=== PATIENT | male | born 1960 | race African-American/Black ===

== ENCOUNTER 2017-06-09 14:54 | Observation (INO) | payer MEDICARE, MEDICAID ==
[2017-06-09 15:42] LABS: #Basophils 0.1 thou/uL (0.0-0.2); #Eosinphils 0.1 thou/uL (0.0-0.7); #Lymphocytes 0.9 thou/uL (1.20-3.40); #Monocytes 0.3 thou/uL (0.11-0.59); #Neutrophils 2.7 thou/uL (1.40-6.50); %Basophils 2.7 % (0.0-1.0); %Eosinophils 2.5 % (0.0-10.0); %Lymphocytes 22.2 % (21.0-51.0); %Monocytes 8.2 % (0.0-10.0); %Neutrophils 64.4 % (42.0-75.0); Hemoglobin 6.7 g/dL (14.0-18.0); Mean Corpuscular HGB CONC 32.5 g/dL (32.0-36.0); Mean Corpuscular Hemoglobin 32.9 pg (27.0-31.0); Mean Platelet Volume 7.3 fL (7.4-10.4); Platelet Count 228 thou/uL (130-400); RBC Distribution Width 16.2 % (11.5-14.5); Red Blood Cell (RBC) Count 2.04 mill/uL (4.70-6.10); White Blood Cell (WBC) Count 4.1 thou/uL (4.8-10.8)
[2017-06-09 16:02] LABS: ALT (SGPT) 24 U/L (8-55); AST (SGOT) 16 U/L (5-34); Albumin 3.7 g/dL (3.5-5.0); Alkaline Phosphatase 91 U/L (40-150); Anion Gap 12 mmol/L (10-20); BUN (Urea Nitrogen) 44 mg/dL (8.4-25.7); Bilirubin, Total 0.4 mg/dL (0.2-1.2); CK (CPK) 56 U/L (30-200); Calc. Creatinine Clearance 0 mL/min (70-130); Calcium 8.6 mg/dL (7.8-10.44); Carbon Dioxide 31 mmol/L (22-29); Chloride 101 mmol/L (98-107); Estimated GFR-MDRD 8; Globulin 2.8 g/dL (2.4-3.5); Glucose 142 mg/dL (70-105); Potassium 4.2 mmol/L (3.5-5.1); Protein, Total 6.5 g/dL (6.0-8.3); Sodium 140 mmol/L (136-145)
[2017-06-09 16:10] LABS: CKMB 1.2 ng/mL (0-6.6); Troponin I 0.029 ng/mL (< 0.028)
--- NOTE | 2017-06-09 17:43 | PDOC.EVN ---
Event Note - Event Note Event Note: [id number] 1. Anemia 2. ESRD 3. htn 4. sECONDARY HYPERPARATHYROIDISM PLAN: see orders
[2017-06-09] MEDS ORDERED: Acetaminophen 325 MG TAB PO PRN (17:52)
[2017-06-09] MEDS ORDERED: Ondansetron HCl/PF 4 MG/2 ML Vial IVP PRN (17:52)
[2017-06-09] MEDS ORDERED: FLU VACC QS2017-18 36 mo. & older 0.5 ML SYRINGE IM ONE (21:00)
[2017-06-09] MEDS: cloNIDine 0.2 MG TAB PO SCH (21:08)
[2017-06-09] MEDS: Heparin 5,000 UNITS/ML VIAL SC SCH (21:08)
[2017-06-09] MEDS: NIFEdipine XL 60 MG TAB PO SCH (21:08)
[2017-06-09 22:13] VITALS: BMI 21.1
--- NOTE | 2017-06-09 23:13 | HP ---
DATE OF ADMISSION: 06/09/2017 CHIEF COMPLAINT: Anemia. HISTORY OF PRESENT ILLNESS: The patient is 56-year-old male with past medical history of end-stage r enal disease, hypertension, anemia of chronic disease, secondary hyperparathyroidism, now came to the ER because of abnormal labs. The patient went to the dialysis unit and the patient had routine hemo globin check and the patient was found to be anemic, so patient was transferred here. The patient de nies any bleeding per rectum. Denies any nausea. Denies any vomiting. Denies chest pain, denies dy spnea. Denies any cough, denies sputum production. Denies abdominal pain. The patient said he has history of anemia and had blood transfusions in the past. PAST MEDICAL HISTORY: As per HPI. PAST SURGICAL HISTORY: AV fistula. SOCIAL HISTORY: Positive for smoking, denies alcohol, denies any drugs. MEDICATIONS: Reviewed. FAMILY HISTORY: Denies any colon cancer. REVIEW OF SYSTEMS: Constitutional: Denies any fever, denies any chills. Eyes: Denies any vision p roblems. Ears: Denies any hearing loss. Neck: Denies any neck pain. Cardiovascular system: John es any chest pain, denies palpitations. Respiratory system: Denies any cough, denies sputum product ion. Gastrointestinal: Denies nausea, denies vomiting. Musculoskeletal: Denies any joint deformit ies. Integumentary: Denies any rash. All other review of systems are reviewed and are negative. PHYSICAL EXAMINATION: CONSTITUTIONAL/VITAL SIGNS: At the time of H&P performed, blood pressure is 130/70, afebrile, respir ation rate 18. GENERAL APPEARANCE: The patient appears comfortable. HEENT: Pupils are equal, round, and reactive to light. Anterior nares patent. Nose normal. Ears no rmal. Teeth intact. Tongue is moist. NECK: Supple, no JVD. CARDIOVASCULAR SYSTEM: S1, S2 present. Regular rate and rhythm. No murmurs, no rubs, no gallops. RESPIRATORY SYSTEM: No wheezing, no rhonchi. Breath sounds bilaterally. GASTROINTESTINAL: Abdomen is soft, nontender, no guarding, no organomegaly, no masses felt. MUSCULOSKELETAL: Left upper extremity, positive for AV fistula. PSYCHIATRIC: Mood is appropriate at this time. INTEGUMENTARY: No obvious rashes seen. LABORATORY DATA: At the time of H&P performed, white count 4.1, hemoglobin 6.7, platelet count 228. BMP shows sodium 140, potassium 4.2, chloride 101, CO2 of 31, BUN of 44, creatinine 8.01. Troponin 0.029. BNP 2657. ASSESSMENT AND PLAN: The patient is 56 years old male. 1. Anemia of chronic disease. ED physician already spoke to the glassblower. Plan to transfuse 2 units of PRBCs. Plan to have dialysis also today. 2. End-stage renal disease. The patient gets dialysis Monday, Monday, and Monday. We will go ah ead and consult Dr. Byrne for dialysis. 3. Hypertension. Monitor blood pressure. Continue home blood pressure medications. 4. Secondary hyperparathyroidism. Monitor. Continue phos binders. Continue renal diet. The case was discussed in detail with the patient. The patient is FULL CODE. The patient does have some lucas zone troponins. We will go ahead and check serial cardiac enzymes and we will monitor the patient. The patient currently denies any pain.
[2017-06-10 04:46] LABS: #Basophils 0.1 thou/uL (0.0-0.2); #Eosinphils 0.1 thou/uL (0.0-0.7); #Lymphocytes 1.1 thou/uL (1.20-3.40); #Monocytes 0.4 thou/uL (0.11-0.59); #Neutrophils 2.9 thou/uL (1.40-6.50); %Eosinophils 2.5 % (0.0-10.0); %Lymphocytes 23.5 % (21.0-51.0); %Monocytes 9.1 % (0.0-10.0); %Neutrophils 62.9 % (42.0-75.0); Hemoglobin 9.2 g/dL (14.0-18.0); Mean Corpuscular HGB CONC 32.7 g/dL (32.0-36.0); Mean Corpuscular Hemoglobin 32.1 pg (27.0-31.0); Mean Corpuscular Volume 98.2 fl (80.0-94.0); Mean Platelet Volume 7.3 fL (7.4-10.4); Platelet Count 217 thou/uL (130-400); RBC Distribution Width 16.9 % (11.5-14.5); Red Blood Cell (RBC) Count 2.86 mill/uL (4.70-6.10); White Blood Cell (WBC) Count 4.5 thou/uL (4.8-10.8)
[2017-06-10 05:08] LABS: Anion Gap 12 mmol/L (10-20); BUN (Urea Nitrogen) 27 mg/dL (8.4-25.7); Calc. Creatinine Clearance 11 mL/min (70-130); Calcium 9.2 mg/dL (7.8-10.44); Carbon Dioxide 33 mmol/L (22-29); Chloride 101 mmol/L (98-107); Estimated GFR-MDRD 11; Glucose 117 mg/dL (70-105); Potassium 4.1 mmol/L (3.5-5.1); Sodium 142 mmol/L (136-145)
[2017-06-10] MEDS: NIFEdipine XL 60 MG TAB PO SCH (07:27)
[2017-06-10] MEDS: cloNIDine 0.2 MG TAB PO SCH (07:28)
[2017-06-10] MEDS: Heparin 5,000 UNITS/ML VIAL SC SCH (07:29)
[2017-06-10 07:46] VITALS: BP 159/76
[2017-06-10] MEDS ORDERED: Calcium Acetate 667 MG CAP PO SCH (08:00)
[2017-06-10] MEDS ORDERED: Carvedilol 25 MG TAB PO SCH (08:00)
[2017-06-10] MEDS ORDERED: Atorvastatin Calcium 20 MG TAB PO SCH ×2 (09:00→21:00)
[2017-06-10] MEDS ORDERED: Gabapentin 100 MG CAP PO SCH (09:00)
[2017-06-10] MEDS ORDERED: Cinacalcet HCl 30 MG TAB PO SCH (09:00)
[2017-06-10 09:01] VITALS: TEMP 98
--- NOTE | 2017-06-10 11:07 | CON ---
DATE OF CONSULTATION: 06/10/2017 NEPHROLOGY CONSULTATION REASON FOR CONSULTATION: Anemia and end-stage renal disease. HISTORY OF PRESENT ILLNESS: This is a 56-year-old gentleman, who presented to the hospital after not ed to have hemoglobin of 6.6. The patient has history of noncompliance and refuses to get Epogen on a regular basis, so develops major anemia and volume overload. The patient presented to the hospital , was emergently dialyzed and given one unit of blood. PAST MEDICAL HISTORY: Significant for hypertension, anemia, end-stage renal disease, history of seco ndary hyperparathyroidism, history of stroke, history of AV fistula, history of tunneled dialysis cat heter, history of respiratory failure and multiple intubations. SOCIAL HISTORY: No alcohol or drug use. FAMILY HISTORY: Negative for ESRD. ALLERGIES: Reviewed. HOME MEDICATIONS: List reviewed. REVIEW OF SYSTEMS: Fifteen point review of systems was performed and negative except as noted above. GENERAL: Weakness- HEAD: Headache- NECK: No swelling or lumps. NOSE: No epistaxis or discharge. EYES: No diplopia or pain. RESPIRATORY: Dyspnea- CARDIOVASCULAR: Chest pain- GASTROINTESTINAL: Nausea- /CENTRAL PROCESSING TECH: Hematuria- MUSCULOSKELETAL: No joint pain. NEUROPSYCHIATIC SYSTEMS: No suicidal ideation. No ideation. SKIN: Denies any rash or ulcer. CONSTITUTIONAL: No fever or chills. PHYSICAL EXAMINATION: GENERAL: The patient is awake, alert, in no acute distress. VITAL SIGNS: Afebrile, pulse 70, breathing at 16, blood pressure 130/70. GENERAL APPEARANCE AND MENTAL STATUS: Fair. HEAD/NECK: Normocephalic. Atraumatic. EYES: EOMI. No deformity. EARS: Clear. No ulcers. NOSE: Intact. No lesions. MOUTH: Clear. No discharge. THROAT: Clear. No exudate. LUNGS: Clear. No crackles. CARDIAC: S1, S2. No rub. ABDOMEN: Benign. BS+. GENITALIA/RECTUM: Arechiga absent. BACK/EXTREMITIES: Edema 0+ Ulcer- NEUROLOGICAL: Alert and motor intact. SKIN: Rash- Bruise- LYMPHATICS: Edema- Ulcer- LABORATORY DATA: Show hemoglobin of 9.2. ASSESSMENT AND PLAN: 1. Stage 6 chronic kidney disease, stable. No indication for dialysis today. 2. Anemia, stable. 3. Hypertension, stable. 4. Medications based on glomerular filtration rate are appropriate. The patient can be discharged.
--- NOTE | 2017-06-10 16:22 | DIS ---
DATE OF ADMISSION: 06/09/2017 DATE OF DISCHARGE: 06/10/2017 PRIMARY CARE PHYSICIAN: Eris Chowdary M.D. DISCHARGE DIAGNOSES: 1. Acute worsening of chronic anemia of kidney disease, status post blood transfusion. 2. End-stage renal disease. 3. Hypertension. 4. Secondary hyperparathyroidism. DISCHARGE MEDICATIONS: Remain the same as admission medication. Please see admission history and ph ysical dictated by Dr. Ibanez yesterday. INHOUSE CONSULTATION: Nephrology, Dr. Byrne. PROCEDURES DONE IN THE HOSPITAL: Hemodialysis. HISTORY OF PRESENTING ILLNESS: Mr. Chris is a 56-year-old male with known history of end-stage renal disease on chronic hemodialysis and anemia of chronic kidney disease, who was sent in from the dialy sis for complaints of abnormal labs. He was found to be significantly anemic while at the dialysis u nit with a hemoglobin of 6.7. He was otherwise asymptomatic. He was admitted under observation stat us for blood transfusion. Incidental finding was a BNP of 2657 and troponin of 0.029 without any ove rt symptoms of fluid overload. Please see admission history and physical for further details. HOSPITAL COURSE: The patient underwent dialysis without any incidences. He got transfused with 2 un its of packed RBCs and tolerated the procedure very well. His hemoglobin has improved to 9.2 this mo rning and he remains hemodynamically stable and asymptomatic. He is desirous to go home and is being discharged. He was seen and examined prior to discharge. PHYSICAL EXAMINATION: VITAL SIGNS: Temperature 98, heart rate 56, respirations 16, blood pressure 159/76, he is saturating 98% on room air. GENERAL: No acute distress, awake, alert, oriented x3. CHEST: Clear to auscultation without any wheezing, rales or rhonchi. Rate and rhythm is regular. EXTREMITIES: Free of any cyanosis, clubbing, or edema. He will follow up with his primary care physician and primary monitor worker as previously to continue maintenance hemodialysis. All questions were answered. Discharge plan was discussed with the patien t who reports that one of his friends will come and pick him up.
== END 2017-06-10 11:26 | disposition home or self-care (01) ==
LOC: ERS 14:54 → 2SW 16:38
PROVIDERS: ADMIT Internal Medicine; ATTEND Internal Medicine
DX: I12.0 Hypertensive chronic kidney disease with stage 5 chronic kidney disease or end stage renal disease (principal); N18.6 End stage renal disease; D63.1 Anemia in chronic kidney disease; N25.81 Secondary hyperparathyroidism of renal origin; F17.200 Nicotine dependence, unspecified, uncomplicated; Z91.14 Patient's other noncompliance with medication regimen; Z99.2 Dependence on renal dialysis; Z79.2 Long term (current) use of antibiotics; Z79.899 Other long term (current) drug therapy; Z98.890 Other specified postprocedural states; Z86.73 Personal history of transient ischemic attack (TIA), and cerebral infarction without residual deficits
CPT/HCPCS: 36430; 80048; 80053; 82550; 82553; 83880; 84100; 84484; 85025 ×2; 86850; 86900; 86901; 86920; 99285; 99406; G0378; P9016; 36415; 90935; G0257; J1644

== ENCOUNTER 2017-11-03 11:09 | Emergency (ER) | payer MEDICARE, MEDICAID ==
--- NOTE | 2017-11-03 13:16 | RAD ---
CHEST 1 VIEW: Date: 11/03/17 HISTORY: Vomiting and nausea. COMPARISON: 08/11/16. FINDINGS: Stable stent projecting over right hemithorax. Persistent cardiomegaly. Pulmonary vessels and hilum a re normal. Patchy interstitial opacities. No pleural effusion or pneumothorax. Stable stent projectin g over left upper extremity. IMPRESSION: Patchy interstitial opacities which may be due to edema or infiltrate. Continued surveillance is claudio mmended. POS: REBECA
[2017-11-03 13:25] LABS: Hemoglobin 4.9 g/dL (14.0-18.0); Mean Corpuscular HGB CONC 32.4 g/dL (32.0-36.0); Mean Corpuscular Hemoglobin 33.2 pg (27.0-31.0); Mean Platelet Volume 8.7 fL (7.4-10.4); Platelet Count 147 thou/uL (130-400); RBC Distribution Width 18.7 % (11.5-14.5); Red Blood Cell (RBC) Count 1.47 mill/uL (4.70-6.10)
[2017-11-03 13:40] LABS: Anisocytosis SLIGHT = 6-15 cells (100X) (0-5/hpf); Burr Cells SLIGHT = 2-5 cells (100X) (0-1/hpf); Eosinophils 2 % (0-10); Lymphocytes 10 % (21-51); MDiff Complete? YES; Macrocytosis SLIGHT = 6-15 cells (100X) (0-5/hpf); Monocytes 4 % (0-10); Neutrophil 83 % (42-75); Ovalocytes SLIGHT = 2-5 cells (100X) (0-1/hpf); PLT Morphology Comment Appears Adequate; Polychromasia MODERATE = 3-4 cells (100X) (0-2/hpf); Reflex for Review?? YES; Spherocytes SLIGHT = 1-5 cells (100X) (None Seen); White Blood Cell (WBC) Count 7.9 thou/uL (4.8-10.8)
[2017-11-03 13:44] LABS: CKMB 3.2 ng/mL (0-6.6); Troponin I 0.035 ng/mL (< 0.028)
[2017-11-03 13:45] LABS: ALT (SGPT) 12 U/L (8-55); AST (SGOT) 8 U/L (5-34); Albumin 3.4 g/dL (3.5-5.0); Alkaline Phosphatase 95 U/L (40-150); Anion Gap 31 mmol/L (10-20); Bilirubin, Total 0.4 mg/dL (0.2-1.2); CK (CPK) 117 U/L (30-200); Calc. Creatinine Clearance 0 mL/min (70-130); Calcium 8.4 mg/dL (7.8-10.44); Carbon Dioxide 13 mmol/L (22-29); Chloride 105 mmol/L (98-107); Estimated GFR-MDRD 4; Globulin 2.2 g/dL (2.4-3.5); Glucose 77 mg/dL (70-105); Lipase 34 U/L (8-78); Protein, Total 5.6 g/dL (6.0-8.3); Sodium 141 mmol/L (136-145)
[2017-11-03] MEDS ORDERED: Pantoprazole 40 MG VIAL ONE (13:47)
[2017-11-03] MEDS ORDERED: Ondansetron HCl/PF 4 MG/2 ML Vial ONE (13:47)
[2017-11-03 13:49] LABS: Potassium 7.5 mmol/L (3.5-5.1)
[2017-11-03] MEDS ORDERED: Sodium Bicarb 50 MEQ/50 ML Abboject 8.4% SYRINGE ONE (13:58)
[2017-11-03] MEDS ORDERED: Dextrose 50% Abboject 50 ML SYRINGE ONE (13:58)
[2017-11-03] MEDS ORDERED: Calcium Chloride 1 GM/10 ML Abboject SYRINGE ONE (13:58)
[2017-11-03] MEDS ORDERED: Insulin Regular 300 UNITS/3 ML VIAL ONE (13:58)
[2017-11-03 14:00] LABS: BUN (Urea Nitrogen) 161 mg/dL (8.4-25.7)
[2017-11-03 14:02] LABS: INR-International Normal Ratio 1.3; PTT 32.2 SEC (22.9-36.1); Prothrombin Time 16.3 SEC (12.0-14.7)
[2017-11-03] MEDS ORDERED: Fentanyl 100 MCG/2 ML VIAL ONE (14:26)
[2017-11-03 17:26] LABS: Hemoglobin 5.5 g/dL (14.0-18.0)
[2017-11-03 18:10] LABS: HBSAg Index 0.25 S/CO (0-0.99); Hep B Surf Ag Non-Reactive S/CO (NonReactive)
--- NOTE | 2017-11-04 01:02 | CON ---
DATE OF CONSULTATION: 11/03/2017 NEPHROLOGY CONSULTATION CONSULTING PHYSICIAN: Dr. Gonzales and Dr. Gerard. REASON FOR CONSULT: Hyperkalemia, anemia, and . HISTORY OF PRESENT ILLNESS: A 56-year-old male with history of end-stage renal dise ase, hypertension, anemia, came to the hospital with weakness and was found to have hemoglobin of 4 w ith GI bleed and also potassium of 7. Patient was having emergent dialysis in the ER, before he gets transferred, he would not be able to have an intervention here, GI intervention. Fruitfully GI inte rvention per GI and plan is to transfer him to [place], but due to his hyperkalemia, Nephrology is con sulted to dialyze him in the ER emergently for before stabilizing for transfer. PAST MEDICAL HISTORY: Positive for end-stage renal disease, hypertension, anemia, noncompliance. PAST SURGICAL HISTORY: AV fistula placement, GI interventions. HOME MEDICATIONS: Reviewed. SOCIAL HISTORY: History of smoking in the past. No alcohol or illicit drug abuse. FAMILY HISTORY: Positive for colon cancer and kidney disease. His mom is also on dialysis. REVIEW OF SYSTEMS: The following complete review of systems was negative, unless otherwise mentioned in the HPI or below: Constitutional: Weight loss or gain, ability to conduct usual activities. Sk in: Rash, itching. Eyes: Double vision, pain. ENT/Mouth: Nose bleeding, neck stiffness, pain, te nderness. Cardiovascular: Palpitations, dyspnea on exertion, orthopnea. Respiratory: Shortness of breath, wheezing, cough, hemoptysis, fever, or night sweats. Gastrointestinal: Poor appetite, abdo trev pain, heartburn, nausea, vomiting, constipation, or diarrhea. Genitourinary: Urgency, frequen cy, dysuria, nocturia. Musculoskeletal: Pain, swelling. Neurologic/Psychiatric: Anxiety, depressi on. Allergy/Immunologic: Skin rash, bleeding tendency. PHYSICAL EXAMINATION: GENERAL: This is a well-built male in no apparent distress. VITAL SIGNS: Temperature 98.6, pulse 71, respiratory rate 18, blood pressure 130/70. HEENT: Atraumatic, normocephalic. Oral mucosa is moist. NECK: Supple, no masses. HEART: S1, S2 heard. Rate and rhythm regular. RESPIRATORY: Clear. GI: Abdomen is soft. MUSCULOSKELETAL: No tenderness. No edema. DERMATOLOGIC: No skin rash. NEUROLOGIC: Alert, awake. PSYCHIATRIC: Normal mood and affect. LABORATORY DATA AND X-RAY FINDINGS: Hemoglobin is 4.9. Potassium 7.5, BUN is 161, creatinine is ___ __. ASSESSMENT AND PLAN: 1. End-stage renal disease. We will have emergent dialysis. 2. Severe hyperkalemia, life-threatening. Plan is to have emergent dialysis. 3. Anemia. We will give 3 units of blood before transfer. 4. Edema, controlled. 5. Hypertension, stable. 6. Prognosis guarded. Plan is to have emergent dialysis to stabilize the patient before transfer to the tertiary care and higher level of care. Plan discussed with Dr. Gonzales and Dr. Gerard. Thank you for the consult. We will follow.
== END 2017-11-03 20:53 | disposition short-term general hospital (02) ==
LOC: ERS 11:09
DX: D63.1 Anemia in chronic kidney disease (principal); K92.2 Gastrointestinal hemorrhage, unspecified; E87.5 Hyperkalemia; I13.2 Hypertensive heart and chronic kidney disease with heart failure and with stage 5 chronic kidney disease, or end stage renal disease; I50.9 Heart failure, unspecified; E11.22 Type 2 diabetes mellitus with diabetic chronic kidney disease; N18.6 End stage renal disease; F17.210 Nicotine dependence, cigarettes, uncomplicated; Z79.891 Long term (current) use of opiate analgesic; Z79.82 Long term (current) use of aspirin; Z79.899 Other long term (current) drug therapy
CPT/HCPCS: 36430; 71045; 80053; 82274; 82550; 82553; 83690; 83880; 84484; 85014; 85018; 85025; 85610; 85730; 86850; 86900; 86901; 86920; 87340; 93005; P9016; 36415; 36556; 85060; 90935; 96361; 96374; 96375; C9113; G0257; J1815; J2405; J3010

== ENCOUNTER 2018-10-05 04:58 | Inpatient (IN) | payer MEDICARE, MEDICAID ==
[2018-10-05] MEDS ORDERED: cloNIDine 0.1 MG TAB ONE (05:30)
[2018-10-05] MEDS ORDERED: hydrALAZINE 20 MG/ML VIAL ONE (05:30)
[2018-10-05 05:45] LABS: #Basophils 0.1 thou/uL (0.0-0.2); #Eosinphils 0.1 thou/uL (0.0-0.7); #Lymphocytes 0.7 thou/uL (1.20-3.40); #Monocytes 0.5 thou/uL (0.11-0.59); #Neutrophils 7.5 thou/uL (1.40-6.50); %Basophils 1.2 % (0.0-1.0); %Eosinophils 1.6 % (0.0-10.0); %Lymphocytes 7.6 % (21.0-51.0); %Monocytes 5.8 % (0.0-10.0); %Neutrophils 83.8 % (42.0-75.0); Hemoglobin 6.5 g/dL (14.0-18.0); Mean Corpuscular Hemoglobin 31.5 pg (27.0-31.0); Mean Corpuscular Volume 95.6 fL (78.0-98.0); Platelet Count 270 thou/uL (130-400); RBC Distribution Width 16.2 % (11.5-14.5); Red Blood Cell (RBC) Count 2.06 mill/uL (4.70-6.10); White Blood Cell (WBC) Count 8.9 thou/uL (4.8-10.8)
[2018-10-05 05:51] LABS: INR-International Normal Ratio 1.1; PTT 38.3 SEC (22.9-36.1); Prothrombin Time 14.4 SEC (12.0-14.7)
[2018-10-05 06:09] LABS: ALT (SGPT) 7 U/L (8-55); AST (SGOT) 9 U/L (5-34); Albumin 3.8 g/dL (3.5-5.0); Alkaline Phosphatase 97 U/L (40-150); Anion Gap 24 mmol/L (10-20); BUN (Urea Nitrogen) 77 mg/dL (8.4-25.7); Bilirubin, Total 0.3 mg/dL (0.2-1.2); Calc. Creatinine Clearance 0 mL/min (70-130); Calcium 8.5 mg/dL (7.8-10.44); Carbon Dioxide 25 mmol/L (22-29); Chloride 97 mmol/L (98-107); Estimated GFR-MDRD 7; Glucose 85 mg/dL (70-105); Iron 53 ug/dL (65-175); Iron Binding Capacity, Total 275 mcg/dL (261-462); Potassium 4.4 mmol/L (3.5-5.1); Protein, Total 6.8 g/dL (6.0-8.3); Sodium 142 mmol/L (136-145)
[2018-10-05] MEDS ORDERED: Morphine 4 MG/ML VIAL ONE (06:12)
[2018-10-05 06:35] LABS: Reticulocyte Count 3.7 % (0.5-1.5)
[2018-10-05] MEDS ORDERED: Sodium Chloride 0.9% (PF) 10 ML VIAL FS PRN (06:47)
[2018-10-05 06:52] LABS: Troponin I 0.076 ng/mL (< 0.028)
[2018-10-05] MEDS ORDERED: Ondansetron ODT 4 MG TAB PO PRN (07:20)
[2018-10-05] MEDS ORDERED: Ondansetron PF 4 MG/2 ML Vial IVP PRN (07:20)
[2018-10-05] MEDS ORDERED: Calcium Carbonate 500 MG ChewTAB PO PRN (07:20)
[2018-10-05] MEDS ORDERED: Senokot S 8.6-50 MG TAB PO PRN (07:20)
--- NOTE | 2018-10-05 07:48 | RAD ---
XR Chest 1 View Portable HISTORY: Abdominal pain COMPARISON: 11/03/2017 FINDINGS: The heart size is prominent. The aorta is tortuous. Right-sided vascular stent is again seen. There i s mild prominence of the pulmonary vascularity. Mild patchy infiltrate is seen in the right lower lung. No pneumothoraces or large effusions are seen. There are postoperative changes in the lower cer vical spine. Vascular stent in the left axilla is again seen.
[2018-10-05 08:05] VITALS: BMI 26.4
--- NOTE | 2018-10-05 08:10 | HP ---
PRIMARY CARE PHYSICIAN: Dr. Chowdary. CHIEF COMPLAINT: Chest discomfort. HISTORY OF PRESENT ILLNESS: The patient is a 57-year-old male with an end-stage renal disease, on hemodialysis, and recurrent anemia, presented to [facility] with above complaint. The patient has a long history of anemia. He has had multiple workup. Earlier this month, he presented to [facility] and underwent EGD. His hemoglobin at that time was 4.9. He also received 1 unit of PRBC. EGD by Dr. Cruz showed non-specific gastritis. Last week, he presented to [facility] [place] [place] with anemia. Hemoglobin was 5.7. He received 2 units of PRBC. Small bowel enteroscopy showed non-erosive gastritis with thickened gastric folds as well as duodenitis. The patient presented to the emergency room today with chest pain that started around 11 a.m. yesterday. It was substernal, mild, radiating to his right shoulder. He also had nausea and vomiting along with diaphoresis. He denies any syncope or palpitations. No recent immobilization travel reported. He is compliant with hemodialysis. His hemoglobin today at [facility] was 6.1. He was transferred to this facility for hospital admission. PAST MEDICAL HISTORY: 1. Recurrent, symptomatic anemia, requiring multiple blood transfusions, probably causing chest discomfort. 2. Coronary artery disease. Echocardiogram last year showed ejection fraction of 55% to 60% with [id number] increased left ventricular thickness as well as diastolic dysfunction. 3. Chronic diastolic heart failure. 4. History of cerebrovascular accident. 5. Diabetes mellitus type 2. 6. End-stage renal disease, on hemodialysis. 7. Gastroesophageal reflux disease. 8. Hypertension with hypertensive urgency. 9. History of [id number] MT. 10. Peripheral vascular disease. PAST SURGICAL HISTORY: 1. Dialysis access. 2. Coronary stent placement. 3. Angiogram for peripheral vascular disease, details unavailable. CURRENT HOME MEDICATIONS: The patient is unable to recall all of his home medications. From review of his record, his medications include, 1. Gabapentin 100 mg three times a day. 2. Procardia XL 30 mg b.i.d. 3. Tylenol as needed. 4. Amitriptyline 25 mg daily. 5. Lipitor 40 mg daily. 6. PhosLo 667 mg daily. 7. Sensipar 60 mg daily. 8. Carvedilol b.i.d. dose unclear. ALLERGIES: THE PATIENT IS ALLERGIC TO HYDRALAZINE. SOCIAL HISTORY: The patient continues to smoke on the daily basis. Denies any alcohol or drug use. FAMILY HISTORY: Positive for kidney disease in the mother and malignancy in the father. REVIEW OF SYSTEMS: All other review of systems were reviewed and were found negative. PHYSICAL EXAMINATION: VITAL SIGNS: Temperature 97.8, respirations of 18, pulse rate of 85, blood pressure of 202/86 with O2 saturation 94% on room air. GENERAL: A 57-year-old male with generalized weakness and fatigue. HEENT: Head, atraumatic and normocephalic. Conjunctival pallor. No oral lesion. NECK: Supple. No JVD. No carotid bruit. LUNGS: Clear to auscultation bilaterally. No wheezing, rales, or rhonchi. HEART: S1, S2 present. Regular rate and rhythm. 2/6 systolic murmur over the mitral area. ABDOMEN: Soft, nontender. Bowel sounds present. No rebound or guarding. No costovertebral angle tenderness. EXTREMITIES: No edema or calf tenderness. NEUROLOGIC: Grossly nonfocal. Moves all 4 extremities. PSYCHIATRY: Alert, awake, and oriented x3. LYMPH NODES: No palpable lymph nodes in the neck. PERIPHERAL VASCULAR: Radial pulses palpable bilaterally. MUSCULOSKELETAL: No joint swelling or tenderness. SKIN: Warm and dry. LABORATORY FINDINGS: EKG by my review showed sinus rhythm with nonspecific ST-T wave changes. Hemoglobin 6.1, hematocrit 18.8, BUN 68, and creatinine 8.6. BNP was 4568. DIAGNOSTIC STUDIES: Right shoulder x-ray showed degenerative changes. Chest x-ray was negative for infiltrate or edema. IMPRESSION: 1. Symptomatic anemia with recent EGD and small bowel enteroscopy. Stool for occult blood was negative at [facility]. 2. Generalized weakness with fatigue secondary to #1. 3. End-stage renal disease, on hemodialysis. 4. Elevated troponin of 0.076 due to demand ischemia/type 2 myocardial infarction. 5. Coronary artery disease, status post stent placement. 6. Peripheral vascular disease, status post stent placement. 7. Chronic diastolic heart failure, compensated. 8. Hypertension. 9. History of cerebrovascular accident. 10. History of multiple blood transfusions in the past. 11. Secondary hyperparathyroidism. 12. Ongoing tobacco abuse. 13. Recent EGD that showed non-specific gastritis. 14. Recent small bowel enteroscopy showed non-erosive gastritis with thickened gastric folds along with duodenitis. PLAN: The patient will be monitored on the telemetry unit. He will receive 2 units of PRBC with hemodialysis today. His hemoglobin today was 6.1. We will consult Hematology. His reticulocyte count was 3.7. We will check folic acid and vitamin B12. We will resume home medications once verified. For now, start medications based on recent discharge summary. IV PPIs due to gastritis. Orthostatic vital signs. Plan of care was discussed with the patient in detail. He stated understanding. Job ID: [id number]
[2018-10-05 08:23] LABS: HBSAg Index 0.26 S/CO (0-0.99); Hep B Surf Ag Non-Reactive S/CO (NonReactive)
[2018-10-05 09:59] LABS: Hep B Surf AB Reactive (NonReactive)
[2018-10-05 10:00] LABS: HBSAB Concentration 16.62 mIU/mL
[2018-10-05 10:28] LABS: Troponin I 0.083 ng/mL (< 0.028)
[2018-10-05] MEDS: Cyanocobalamin (Vitamin B-12) 1,000 MCG TAB PO SCH (10:50)
[2018-10-05] MEDS: Carvedilol 6.25 MG TAB PO SCH ×2 (10:50→16:09)
[2018-10-05] MEDS: NIFEdipine XL 30 MG TAB PO SCH ×2 (10:51→20:21)
[2018-10-05] MEDS: Folic Acid 1 MG TAB PO SCH (10:51)
[2018-10-05] MEDS: Pantoprazole 40 MG VIAL IVP SCH ×2 (10:51→20:28)
[2018-10-05] MEDS ORDERED: Heparin 10,000 UNITS/ 10 ML VIAL ONE (12:00)
[2018-10-05 16:23] LABS: Folate (Folic Acid) 4.6 ng/mL (7.0-31.4)
--- NOTE | 2018-10-05 16:29 | CON ---
DATE OF CONSULTATION: REASON FOR CONSULTATION: Chronic anemia. HISTORY OF PRESENT ILLNESS: Mr. Chris is a 57-year-old gentleman with end-stage renal disease, on hemodialysis, who has a longstanding history of anemia. He has had multiple GI workups in the past. Most recently, he was at [facility] in [place], where he had a push enteroscopy, which supposedly did not show any significant bleeding. He has had a recent upper endoscopy done by Dr. Cruz at [facility], which showed nonspecific gastritis. He was discharged from [facility] this past Monday. Over the course of the next few days, he began to have chest pain and presented to [facility] in [place]. His hemoglobin was 6.1. Apparently, the patient had some coffee-grounds emesis and was started on a Protonix drip. He was transferred to this facility for further workup. He received 2 units of packed RBCs with dialysis today. He denies any complaints at this time. The patient had declotting of his left upper extremity AV fistula by a vascular surgeon in [place] on the morning of 10/04. PAST MEDICAL HISTORY: 1. End-stage renal disease, on hemodialysis. 2. Recurrent anemia. 3. History of multiple blood transfusions. 4. Coronary artery disease. 5. Congestive heart failure. 6. CVA. 7. Diabetes. 8. GERD. 9. Hypertension. 10. Non-STEMI. 11. Peripheral vascular disease. 12. Stroke. PAST SURGICAL HISTORY: 1. AV fistula placement. 2. Coronary angioplasty with stent placement. 3. PICC line placement. ALLERGIES: HYDRALAZINE. HOME MEDICATIONS: 1. Lipitor 20 mg daily. 2. PhosLo t.i.d. 3. Gabapentin 300 mg t.i.d. 4. Procrit 10,000 units three times a week. 5. Procardia XL 30 mg b.i.d. 6. Protonix 40 mg b.i.d. 7. Zoloft 25 mg daily. 8. Coreg 25 mg b.i.d. 9. Catapres 0.2 mg t.i.d. 10. Colace 100 mg b.i.d. 11. Renvela 3200 mg. FAMILY HISTORY: Both father and mother had unknown type of cancer. SOCIAL HISTORY: Current everyday smoker. No alcohol or illicit drug use. Lives in [place] by himself. REVIEW OF SYSTEMS: A 10-point review of systems is negative except for left arm pain and fatigue. PHYSICAL EXAMINATION: VITAL SIGNS: Temperature 98.1, pulse is 74, respiratory rate 16, BP is 189/87. He is 100% on room air. GENERAL: This is a chronically ill-appearing male, in no acute distress. HEENT: Normocephalic and atraumatic. Pupils are equal and reactive to light. NECK: Supple. CV: Regular rate and rhythm. LUNGS: Clear anterior. ABDOMEN: Soft and nontender. Bowel sounds are positive. EXTREMITIES: He has left upper extremity fistula with swelling. NEUROLOGIC: Nonfocal. PERTINENT LABS AND X-RAYS: Current WBCs are 8.9, hemoglobin 6.5, hematocrit 19.7, platelet count 270,000, 84% neutrophils, 8% lymphocytes, retic count 3.7. PT is 14.4, INR is 1.1, and PTT is 38.8. Sodium is 142, potassium 4.4, chloride 97, CO2 is 25, BUN is 77, creatinine is 9.12, calcium is 8.5. Iron is 53, TIBC is 275, ferritin is 202. Bilirubin is 0.3, AST is 9, ALT is 7, and alkaline phosphatase is 97. Troponin is 0.083. Serum total protein is 6.8, albumin 3.8, globulin 3.0, lipase is 34. ASSESSMENT: 1. Recurrent symptomatic anemia, multifactorial. 2. End-stage renal disease, on dialysis. 3. Congestive heart failure. DISCUSSION: The patient has been intermittently anemic over the past several years. According the the chart, he has had an extensive GI workup. He does have a history of gastritis and coffee-grounds emesis. He recently received 2 units of packed RBCs last week in [place]. He does receive Procrit 10,000 units three times a week with dialysis. He has been transfused 2 units on this admission. I do not know what hematological workup has been done. I don't think he needs a bone marrow at this time. It appears his anemia is secondary to chronic GI bleeding, end-stage renal disease, and congestive heart failure. He does not need any iron at this time. We will check B12, folic acid, and a serum protein electrophoresis to be complete. Once his hemoglobin is stable, he can be discharged to follow up with his physicians at [facility]. Thank you for the consult. Job ID: [id number] [facility]ITAL[facility]
[2018-10-05] MEDS ORDERED: Sevelamer Carbonate 800 MG TAB PO PRN (16:52)
[2018-10-05] MEDS ORDERED: Nitroglycerin 0.4 MG TAB (25 Tab Bottle) SL PRN (16:52)
[2018-10-05] MEDS ORDERED: Carvedilol 25 MG TAB PO SCH (17:00)
[2018-10-05] MEDS ORDERED: Carvedilol 6.25 MG TAB PO SCH (17:15)
[2018-10-05] MEDS: Acetaminophen 325 MG TAB PO PRN (17:32)
--- NOTE | 2018-10-05 18:22 | CON ---
DATE OF CONSULTATION: 10/05/2018 CONSULTING PHYSICIAN: Keron Reeves MD REASON FOR CONSULT: Anemia with end-stage renal disease. REASON FOR ADMISSION: Chest discomfort. HISTORY OF PRESENT ILLNESS: This is a 57-year-old male with history of end-stage renal disease, hypertension, and CVA, came to the hospital with above complaints. Nephrology was consulted for maintenance hemodialysis. The patient's hemoglobin was low and needs blood transfusion. No nausea, vomiting, or diarrhea reported. PAST MEDICAL HISTORY: Positive for anemia, coronary artery disease, CVA, type 2 diabetes, end-stage renal disease, and hypertension. PAST SURGICAL HISTORY: Dialysis access placement, coronary stents. HOME MEDICATIONS: 1. Gabapentin. 2. Procardia. 3. Tylenol. 4. Amitriptyline. 5. Lipitor. 6. PhosLo. 7. Sensipar. 8. Carvedilol. ALLERGIES: TO HYDRALAZINE. SOCIAL HISTORY: History of smoking and alcohol use. FAMILY HISTORY: Positive for kidney disease. REVIEW OF SYSTEMS: CONSTITUTIONAL: Negative for weight loss or gain, ability to conduct usual activities. SKIN: Negative for rash, itching. EYES: Negative for double vision, pain. ENT/MOUTH: Negative for nose bleeding, neck stiffness, pain, tenderness. CARDIOVASCULAR: Negative for palpitations, dyspnea on exertion, orthopnea. RESPIRATORY: Negative for shortness of breath, wheezing, cough, hemoptysis, fever or night sweats. GASTROINTESTINAL: Negative for poor appetite, abdominal pain, heartburn, nausea, vomiting, constipation, or diarrhea. GENITOURINARY: Negative for urgency, frequency, dysuria, nocturia. MUSCULOSKELETAL: Negative for pain, swelling. NEUROLOGIC/PSYCHIATRIC: Negative for anxiety, depression. ALLERGY/IMMUNOLOGIC: Negative for skin rash, bleeding tendency. Rest all negative. PHYSICAL EXAMINATION: GENERAL: Reveals a well-built male, in no apparent distress. VITAL SIGNS: Temperature 98.1, pulse 82, respiratory rate 18, and blood pressure 189/87. HEENT: Atraumatic, normocephalic. Oral mucosa moist. NECK: Supple. CVS: S1 and S2 heard. Regular rate and rhythm. RESPIRATORY: Clear. GI: Abdomen is soft. MUSCULOSKELETAL: 1+ edema. DERMATOLOGIC: No skin rash. NEUROLOGIC: Alert and awake. PSYCHIATRIC: Normal mood and affect. LABORATORY DATA: Hemoglobin is 6.5. Potassium 4.4, BUN is 77, and creatinine is 9.1. ASSESSMENT AND PLAN: 1. End-stage renal disease. Plan is to have dialysis. The patient gets dialysis Monday, Monday, Monday. 2. Anemia. We will transfuse with dialysis. 3. Edema, controlled. 4. Hypertension, stable. Plan is to have dialysis with 2 units of PRBC. We will monitor labs. Rule out any bleed. We will follow. Thank you for the consult. Job ID: [id number]
--- NOTE | 2018-10-05 18:32 | PDOC.PN ---
- Subjective Encounter Start Date: 10/05/18 (f/u anemia) Encounter Start Time: 18:31 Subjective: Pt c/o neck pain, states it has been ongoing -right side of neck. -: Denies any cp/sob. Sleepy - Objective Resuscitation Status - Order Detail: 10/05/18 07:20 Resuscitation Status Routine Resuscitation Status: FULL: Full Resuscitation Vital Signs & Weight: Vital Signs (12 hours) Temp Pulse Resp BP BP Pulse Ox 10/05/18 16:09 204/86 H 10/05/18 15:28 98.1 F 82 12 203/90 H 92 L 10/05/18 14:26 189/87 H 10/05/18 13:57 98.1 F 74 16 212/95 H 100 10/05/18 07:55 97.7 F 84 22 H 192/92 H 98 Weight Weight 168 lb 14.4 oz I&O: 10/04/18 10/05/18 10/06/18 06:59 06:59 06:59 Intake Total 150 Balance 150 Result Diagrams: 10/05/18 05:29 10/05/18 05:29 Phys Exam - Physical Examination Constitutional: NAD Respiratory: no wheezing, no rales, no rhonchi, clear to auscultation bilateral Cardiovascular: RRR, no significant murmur Gastrointestinal: soft, non-tender, no distention, positive bowel sounds Neurological: non-focal head is turned to the left secondary to pain Dx/Plan (1) Anemia in chronic kidney disease Code(s): N18.9 - CHRONIC KIDNEY DISEASE, UNSPECIFIED; D63.1 - ANEMIA IN CHRONIC KIDNEY DISEASE Status: Acute (2) Neck pain Code(s): M54.2 - CERVICALGIA Status: Acute (3) Dyslipidemia Code(s): E78.5 - HYPERLIPIDEMIA, UNSPECIFIED Status: Chronic (4) ESRD (end stage renal disease) on dialysis Code(s): N18.6 - END STAGE RENAL DISEASE; Z99.2 - DEPENDENCE ON RENAL DIALYSIS Status: Chronic (5) Hypertension Code(s): I10 - ESSENTIAL (PRIMARY) HYPERTENSION Status: Chronic Qualifiers: Hypertension type: essential hypertension Qualified Code(s): I10 - Essential (primary) hypertension - Plan * s/p 2 units of prbc today with dialysis - appreciate Hematology consult. Folic acid low and pt is on replacement * recheck cbc in AM * appreciate Nephro consult - dialysis today * * reconcilled home meds - bp's uncontrolled and likely secondary to missed clonidine. Resume home meds * * dvt prophy - scd's * gi prophy - not indicated, on a home ppi * code status full * * reviewed plan of care with patient, no questions or further needs at end of eval * .
[2018-10-05] MEDS: Calcium Acetate 667 MG CAP PO SCH (18:35)
[2018-10-05] MEDS: cloNIDine 0.2 MG TAB PO SCH (20:21)
[2018-10-05] MEDS: Atorvastatin Calcium 20 MG TAB PO SCH (20:22)
[2018-10-05] MEDS: Gabapentin 300 MG CAP PO SCH (20:22)
[2018-10-06] MEDS: Acetaminophen 325 MG TAB PO PRN ×2 (00:40→16:20)
[2018-10-06 06:49] LABS: #Basophils 0.1 thou/uL (0.0-0.2); #Eosinphils 0.1 thou/uL (0.0-0.7); #Lymphocytes 0.6 thou/uL (1.20-3.40); #Monocytes 0.7 thou/uL (0.11-0.59); #Neutrophils 4.2 thou/uL (1.40-6.50); %Basophils 1.2 % (0.0-1.0); %Eosinophils 1.8 % (0.0-10.0); %Lymphocytes 10.2 % (21.0-51.0); %Monocytes 11.8 % (0.0-10.0); Hemoglobin 7.7 g/dL (14.0-18.0); Mean Corpuscular HGB CONC 33.2 g/dL (32.0-36.0); Mean Corpuscular Hemoglobin 31.4 pg (27.0-31.0); Mean Corpuscular Volume 94.6 fL (78.0-98.0); Platelet Count 229 thou/uL (130-400); RBC Distribution Width 15.7 % (11.5-14.5); Red Blood Cell (RBC) Count 2.45 mill/uL (4.70-6.10); White Blood Cell (WBC) Count 5.6 thou/uL (4.8-10.8)
[2018-10-06] MEDS: Cyanocobalamin (Vitamin B-12) 1,000 MCG TAB PO SCH (08:32)
[2018-10-06] MEDS: Folic Acid 1 MG TAB PO SCH (08:32)
[2018-10-06] MEDS: Gabapentin 300 MG CAP PO SCH ×3 (08:32→20:43)
[2018-10-06] MEDS: Calcium Acetate 667 MG CAP PO SCH ×3 (08:32→16:19)
[2018-10-06] MEDS: Carvedilol 25 MG TAB PO SCH ×2 (08:32→16:19)
[2018-10-06] MEDS: cloNIDine 0.2 MG TAB PO SCH ×3 (08:32→20:43)
[2018-10-06] MEDS: Pantoprazole 40 MG VIAL IVP SCH (08:33)
[2018-10-06] MEDS: NIFEdipine XL 30 MG TAB PO SCH ×2 (08:33→20:42)
--- NOTE | 2018-10-06 10:29 | PDOC.PN ---
- Subjective Encounter Start Date: 10/06/18 (f/u anemia) Encounter Start Time: 10:25 Subjective: Pt without complaints, reports that right neck and shoulder -: pain are improved today. Denies feeling lightheaded/dizzy - Objective Resuscitation Status - Order Detail: 10/05/18 07:20 Resuscitation Status Routine Resuscitation Status: FULL: Full Resuscitation Vital Signs & Weight: Vital Signs (12 hours) Temp Pulse Resp BP BP Pulse Ox 10/06/18 08:33 73 175/81 H 10/06/18 08:32 175/81 H 10/06/18 07:56 98.2 F 73 18 175/81 H 94 L 10/06/18 05:00 98.3 F 73 16 149/68 H 93 L 10/05/18 23:38 98.9 F 78 20 141/64 H 92 L Weight Weight 168 lb 14.4 oz I&O: 10/05/18 10/06/18 10/07/18 06:59 06:59 06:59 Intake Total 390 Balance 390 Result Diagrams: 10/06/18 06:38 10/05/18 05:29 EKG Reviewed by me: Yes (tele - sinus 60's) Phys Exam - Physical Examination Constitutional: NAD Respiratory: no wheezing, no rales, no rhonchi, clear to auscultation bilateral Cardiovascular: RRR 2/6 [place] Gastrointestinal: soft, non-tender, no distention, positive bowel sounds Neurological: non-focal, moves all 4 limbs Psychiatric: normal affect Dx/Plan (1) Anemia Code(s): D64.9 - ANEMIA, UNSPECIFIED Status: Acute Qualifiers: Chronic kidney disease stage: on chronic dialysis (2) Anemia in chronic kidney disease Code(s): N18.9 - CHRONIC KIDNEY DISEASE, UNSPECIFIED; D63.1 - ANEMIA IN CHRONIC KIDNEY DISEASE Status: Acute Qualifiers: Chronic kidney disease stage: on chronic dialysis Qualified Code(s): N18.6 - End stage renal disease; D63.1 - Anemia in chronic kidney disease; Z99.2 - Dependence on renal dialysis (3) Neck pain Code(s): M54.2 - CERVICALGIA Status: Acute (4) Dyslipidemia Code(s): E78.5 - HYPERLIPIDEMIA, UNSPECIFIED Status: Chronic (5) ESRD (end stage renal disease) on dialysis Code(s): N18.6 - END STAGE RENAL DISEASE; Z99.2 - DEPENDENCE ON RENAL DIALYSIS Status: Chronic (6) Hypertension Code(s): I10 - ESSENTIAL (PRIMARY) HYPERTENSION Status: Chronic Qualifiers: Hypertension type: essential hypertension Qualified Code(s): I10 - Essential (primary) hypertension - Plan * Improved hemoglobin but remains at high risk - hospitalized at another facility and transfused last week, and returns with worsening anemia. Pt not safe for discharge to home. Per Heme eval - chronic GI bleeding in addition to ESRD and CHF * Transfuse an additional 1 unit prbc * Appreciate NEphro consult - to increase epo * continue folic acid replacement * recheck cbc in AM * Pt consult to check strength * Change to inpatient if meets criteria * hold on GI eval as pt has received an extensive one by notes on chart * * gi prophy - on IV protonix - will change this to bid oral PPI * dvt prophy -scds * code status full * * pt remains at high risk in current condition. Reviewed plan of care with patient, no questions or further needs at end of eval.
[2018-10-06] MEDS ORDERED: Acetaminophen 325 MG TAB PO SCH (10:30)
[2018-10-06] MEDS ORDERED: Epoetin (ESRD) 20,000 UNITS/ML SC ONE (11:00)
--- NOTE | 2018-10-06 11:53 | PRG ---
DATE OF SERVICE: 10/06/2018 SUBJECTIVE: Patient was seen and examined at bedside and overnight events noted. Patient denies any shortness of breath or chest pain or palpitation. No history of nausea or vomiting or diarrhea or fever or chills or cramps. OBJECTIVE: GENERAL: This is a well-built male, in no apparent distress. VITAL SIGNS: Temperature 98.2, pulse 72, respiratory rate 18, blood pressure 175/81. LABORATORY DATA: No labs done today. ASSESSMENT AND PLAN: 1. End-stage renal disease. Continue dialysis as tolerated. 2. Anemia. 3. Edema. 4. Hypertension, stable. PLAN: Continue on dialysis as tolerated, Monday, Monday, and Monday. Job ID: [id number]
[2018-10-06] MEDS ORDERED: EPOETIN ALFA-EPBX (ESRD) 10,000 UNIT/ML VIAL SC SCH (12:30)
[2018-10-06] MEDS: Atorvastatin Calcium 20 MG TAB PO SCH (20:43)
[2018-10-07 05:50] LABS: #Basophils 0.1 thou/uL (0.0-0.2); #Eosinphils 0.1 thou/uL (0.0-0.7); #Lymphocytes 0.7 thou/uL (1.20-3.40); #Monocytes 0.5 thou/uL (0.11-0.59); #Neutrophils 3.3 thou/uL (1.40-6.50); %Basophils 1.6 % (0.0-1.0); %Eosinophils 1.8 % (0.0-10.0); %Lymphocytes 14.8 % (21.0-51.0); %Monocytes 11.5 % (0.0-10.0); %Neutrophils 70.3 % (42.0-75.0); Hemoglobin 8.1 g/dL (14.0-18.0); Mean Corpuscular HGB CONC 33.4 g/dL (32.0-36.0); Mean Corpuscular Volume 95.7 fL (78.0-98.0); Mean Platelet Volume 8.3 fL (7.4-10.4); Platelet Count 229 thou/uL (130-400); RBC Distribution Width 15.4 % (11.5-14.5); Red Blood Cell (RBC) Count 2.54 mill/uL (4.70-6.10); White Blood Cell (WBC) Count 4.6 thou/uL (4.8-10.8)
[2018-10-07] MEDS: Calcium Acetate 667 MG CAP PO SCH ×3 (08:54→17:22)
[2018-10-07] MEDS: Carvedilol 25 MG TAB PO SCH ×2 (08:54→17:22)
[2018-10-07] MEDS: Cyanocobalamin (Vitamin B-12) 1,000 MCG TAB PO SCH (08:54)
[2018-10-07] MEDS: cloNIDine 0.2 MG TAB PO SCH ×3 (08:54→20:57)
[2018-10-07] MEDS: Gabapentin 300 MG CAP PO SCH ×3 (08:55→20:58)
[2018-10-07] MEDS: Folic Acid 1 MG TAB PO SCH (08:55)
[2018-10-07] MEDS: NIFEdipine XL 30 MG TAB PO SCH ×2 (08:55→20:56)
--- NOTE | 2018-10-07 10:18 | PDOC.PN ---
- Subjective Encounter Start Date: 10/07/18 (f/u anemia) Encounter Start Time: 10:15 Subjective: Pt denies any cp/sob/n/v. C/o the IV in his foot - that he does not want -: to walk because of it. No overnight events - Objective Resuscitation Status - Order Detail: 10/05/18 07:20 Resuscitation Status Routine Resuscitation Status: FULL: Full Resuscitation Vital Signs & Weight: Vital Signs (12 hours) Temp Pulse Resp BP BP Pulse Ox 10/07/18 08:55 60 145/64 H 10/07/18 08:54 145/64 H 10/07/18 07:42 97.5 F L 60 14 145/64 H 96 10/07/18 04:15 97.8 F 61 16 152/73 H 98 10/06/18 23:12 97.7 F 61 20 133/63 95 Weight Weight 168 lb 14.4 oz Most Recent Monitor Data Heart Rate from ECG 67 I&O: 10/06/18 10/07/18 10/08/18 06:59 06:59 06:59 Intake Total 390 1510 Output Total 0 Balance 390 1510 Result Diagrams: 10/07/18 04:19 10/05/18 05:29 EKG Reviewed by me: Yes (tele - sinus 50's) Phys Exam - Physical Examination Constitutional: NAD Respiratory: no wheezing, no rhonchi bibasilar rales Cardiovascular: RRR 2/6 [place] Gastrointestinal: soft, non-tender, no distention, positive bowel sounds Musculoskeletal: no edema Neurological: non-focal, moves all 4 limbs Skin: no rash Dx/Plan (1) Anemia Code(s): D64.9 - ANEMIA, UNSPECIFIED Status: Acute Qualifiers: Chronic kidney disease stage: on chronic dialysis (2) Anemia in chronic kidney disease Code(s): N18.9 - CHRONIC KIDNEY DISEASE, UNSPECIFIED; D63.1 - ANEMIA IN CHRONIC KIDNEY DISEASE Status: Acute Qualifiers: Chronic kidney disease stage: on chronic dialysis Qualified Code(s): N18.6 - End stage renal disease; D63.1 - Anemia in chronic kidney disease; Z99.2 - Dependence on renal dialysis (3) Neck pain Code(s): M54.2 - CERVICALGIA Status: Acute (4) Dyslipidemia Code(s): E78.5 - HYPERLIPIDEMIA, UNSPECIFIED Status: Chronic (5) ESRD (end stage renal disease) on dialysis Code(s): N18.6 - END STAGE RENAL DISEASE; Z99.2 - DEPENDENCE ON RENAL DIALYSIS Status: Chronic (6) Hypertension Code(s): I10 - ESSENTIAL (PRIMARY) HYPERTENSION Status: Chronic Qualifiers: Hypertension type: essential hypertension Qualified Code(s): I10 - Essential (primary) hypertension - Plan * Improved hemoglobin now s/p 3 units PRBC but response is less than expected. Pt continues to remain at high risk - hospitalized at another facility and transfused last week, and returns with worsening anemia. Pt not safe for discharge to home. Per Heme eval - chronic GI bleeding in addition to ESRD and CHF * Appreciate Nephro consult - increased epo * continue folic acid replacement * recheck cbc in AM, next dialysis tomorrow * Pt consult * Pt met criteria for inpatient - changed yesterday * hold on GI eval as pt has received an extensive one by notes on chart * * gi prophy - bid oral PPI * dvt prophy -scds * code status full * * pt remains at high risk in current condition. Reviewed plan of care with patient, no questions or further needs at end of eval. * transfer to medical floor
[2018-10-07] MEDS: Acetaminophen 325 MG TAB PO PRN ×2 (11:43→21:00)
--- NOTE | 2018-10-07 11:45 | PRG ---
DATE OF SERVICE: 10/07/2018 SUBJECTIVE: Patient was seen and examined at bedside and overnight events noted. Patient denies any shortness of breath or chest pain or palpitation. No history of nausea or vomiting or diarrhea or fever or chills or cramps. OBJECTIVE: GENERAL: This is a well-built male, in no apparent distress. VITAL SIGNS: Temperature 97.5. Heart rate 60. Respiratory rate 18. Blood pressure 140/64. HEENT: Atraumatic, normocephalic. Oral mucosa is moist NECK: Supple. CARDIOVASCULAR: S1, S2 heard. Rate and rhythm regular. RESPIRATORY: Clear to auscultation. GASTROINTESTINAL: Abdomen is soft. MUSCULOSKELETAL: No tenderness. No edema. DERMATOLOGIC: No skin rash. NEUROLOGIC: Alert and awake and oriented X3. No focal neurologic deficits. Moving all the extremities. PSYCHIATRIC: Mood and affect normal. LABORATORY DATA: No labs done today. ASSESSMENT AND PLAN: 1. End-stage renal disease. Continue on dialysis as tolerated. 2. Anemia. Monitor hemoglobin. 3. Edema. 4. Hypertension, stable. We will continue on Epogen. Monitor labs. Continue dialysis as tolerated. Job ID: [id number]
[2018-10-07] MEDS: Atorvastatin Calcium 20 MG TAB PO SCH (20:58)
[2018-10-08 05:52] LABS: #Basophils 0.1 thou/uL (0.0-0.2); #Eosinphils 0.1 thou/uL (0.0-0.7); #Lymphocytes 0.6 thou/uL (1.20-3.40); #Monocytes 0.6 thou/uL (0.11-0.59); #Neutrophils 3.7 thou/uL (1.40-6.50); %Eosinophils 2.9 % (0.0-10.0); %Lymphocytes 11.9 % (21.0-51.0); %Monocytes 11.5 % (0.0-10.0); %Neutrophils 72.7 % (42.0-75.0); Hemoglobin 8.3 g/dL (14.0-18.0); Mean Corpuscular HGB CONC 33.2 g/dL (32.0-36.0); Mean Corpuscular Volume 96.3 fL (78.0-98.0); Mean Platelet Volume 8.8 fL (7.4-10.4); Platelet Count 237 thou/uL (130-400); RBC Distribution Width 15.9 % (11.5-14.5); Red Blood Cell (RBC) Count 2.58 mill/uL (4.70-6.10); White Blood Cell (WBC) Count 5.1 thou/uL (4.8-10.8)
[2018-10-08] MEDS: Acetaminophen 325 MG TAB PO PRN ×2 (08:46→20:30)
[2018-10-08] MEDS ORDERED: EPOETIN ALFA-EPBX (ESRD) 10,000 UNIT/ML VIAL IVP SCH (09:00)
[2018-10-08] MEDS ORDERED: Epoetin (ESRD) 20,000 UNITS/ML IVP SCH (10:46)
--- NOTE | 2018-10-08 13:14 | PDOC.PN ---
- Subjective Encounter Start Date: 10/08/18 (f/u anemia) Encounter Start Time: 13:11 Subjective: Pt reports he feels better. Has been refusing to walk due to an IV -: in his foot. Denies any CP /sob - Objective Resuscitation Status - Order Detail: 10/05/18 07:20 Resuscitation Status Routine Resuscitation Status: FULL: Full Resuscitation Vital Signs & Weight: Vital Signs (12 hours) Temp Pulse Resp BP BP BP Pulse Ox 10/08/18 12:21 97.5 F L 57 L 16 171/79 H 94 L 10/08/18 08:30 97.6 F 55 L 16 178/85 H 173/76 H 179/80 H 98 10/08/18 04:00 97.6 F 56 L 16 169/76 H 92 L Weight Weight 168 lb 14.4 oz Most Recent Monitor Data Heart Rate from ECG 67 I&O: 10/07/18 10/08/18 10/09/18 06:59 06:59 06:59 Intake Total 1510 300 Output Total 0 Balance 1510 300 Result Diagrams: 10/08/18 05:29 10/05/18 05:29 Phys Exam - Physical Examination Constitutional: NAD Respiratory: no wheezing faint bi-basilar rales, decreased breath sounds at left base Cardiovascular: RRR 2/6 [place] Gastrointestinal: soft, non-tender, no distention, positive bowel sounds Musculoskeletal: no edema Neurological: non-focal Psychiatric: normal affect Dx/Plan (1) Anemia Code(s): D64.9 - ANEMIA, UNSPECIFIED Status: Acute Qualifiers: Chronic kidney disease stage: on chronic dialysis (2) Anemia in chronic kidney disease Code(s): N18.9 - CHRONIC KIDNEY DISEASE, UNSPECIFIED; D63.1 - ANEMIA IN CHRONIC KIDNEY DISEASE Status: Acute Qualifiers: Chronic kidney disease stage: on chronic dialysis Qualified Code(s): N18.6 - End stage renal disease; D63.1 - Anemia in chronic kidney disease; Z99.2 - Dependence on renal dialysis (3) Neck pain Code(s): M54.2 - CERVICALGIA Status: Acute (4) Dyslipidemia Code(s): E78.5 - HYPERLIPIDEMIA, UNSPECIFIED Status: Chronic (5) ESRD (end stage renal disease) on dialysis Code(s): N18.6 - END STAGE RENAL DISEASE; Z99.2 - DEPENDENCE ON RENAL DIALYSIS Status: Chronic (6) Hypertension Code(s): I10 - ESSENTIAL (PRIMARY) HYPERTENSION Status: Chronic Qualifiers: Hypertension type: essential hypertension Qualified Code(s): I10 - Essential (primary) hypertension - Plan * Anemia stable - s/p 3 units prbc with another planned 1 unit with dialysis today * Appreciate Nephro consult - increased epo and will transfuse 1 unit prbc * continue folic acid replacement * recheck cbc in AM, possibly home tomorrow * Pt consult - pt has been refusing, remove IV * hold on GI eval as pt has received an extensive one by notes on chart * * gi prophy - bid oral PPI * dvt prophy -scds * code status full * * pt remains at high risk in current condition. Reviewed plan of care with patient, no questions or further needs at end of eval. * anticipate d/c tomorrow if hb stable. Will need close f/u with PCP as at high risk
--- NOTE | 2018-10-08 15:55 | PRG ---
DATE OF SERVICE: 10/08/2018 SUBJECTIVE: A 57-year-old gentleman, being seen for end-stage renal disease. The patient denied any nausea, vomiting, or chest pain. OBJECTIVE: CONSTITUTIONAL: The patient is awake and alert. VITAL SIGNS: Breathing 16, blood pressure 169/76. GENERAL APPEARANCE AND MENTAL STATUS: Fair. HEAD/NECK: Normocephalic. Atraumatic. EYES: EOMI. No deformity. EARS: Clear. No ulcers. NOSE: Intact. No lesions. MOUTH: Clear. No discharge. THROAT: Clear. No exudate. LUNGS: Clear. No crackles. CARDIAC: S1, S2. No rub. ABDOMEN: Benign. Bowel sounds positive. GENITALIA/RECTUM: Arechiga absent. BACK/EXTREMITIES: Edema 0+. NEUROLOGICAL: Alert and motor intact. SKIN: LYMPHATICS: LABORATORY DATA: Reviewed. ASSESSMENT: 1. Chronic kidney disease, stable. 2. Hypertension, stable. 3. Anemia, plan transfusion. 4. Medication based on GFR appropriate. Job ID: [id number]
[2018-10-08] MEDS: Calcium Acetate 667 MG CAP PO SCH ×2 (15:58→18:03)
[2018-10-08] MEDS: Carvedilol 25 MG TAB PO SCH ×2 (15:59→18:03)
[2018-10-08] MEDS: NIFEdipine XL 30 MG TAB PO SCH ×2 (15:59→20:29)
[2018-10-08] MEDS: Cyanocobalamin (Vitamin B-12) 1,000 MCG TAB PO SCH (15:59)
[2018-10-08] MEDS: cloNIDine 0.2 MG TAB PO SCH ×2 (15:59→20:27)
[2018-10-08] MEDS: Folic Acid 1 MG TAB PO SCH (15:59)
[2018-10-08] MEDS: Atorvastatin Calcium 20 MG TAB PO SCH (20:27)
[2018-10-08] MEDS: Gabapentin 400 MG CAP PO SCH (20:29)
[2018-10-08] MEDS: Gabapentin 300 MG CAP PO SCH (20:30)
[2018-10-09] MEDS: Acetaminophen 325 MG TAB PO PRN ×2 (00:45→08:34)
[2018-10-09 05:42] LABS: #Basophils 0.1 thou/uL (0.0-0.2); #Eosinphils 0.2 thou/uL (0.0-0.7); #Lymphocytes 0.7 thou/uL (1.20-3.40); #Monocytes 0.8 thou/uL (0.11-0.59); #Neutrophils 5.5 thou/uL (1.40-6.50); %Basophils 0.7 % (0.0-1.0); %Eosinophils 2.2 % (0.0-10.0); %Lymphocytes 9.9 % (21.0-51.0); %Monocytes 10.4 % (0.0-10.0); %Neutrophils 76.9 % (42.0-75.0); Hemoglobin 10.5 g/dL (14.0-18.0); Mean Corpuscular HGB CONC 32.8 g/dL (32.0-36.0); Mean Corpuscular Volume 94.4 fL (78.0-98.0); Mean Platelet Volume 8.4 fL (7.4-10.4); Platelet Count 265 thou/uL (130-400); RBC Distribution Width 15.9 % (11.5-14.5); Red Blood Cell (RBC) Count 3.37 mill/uL (4.70-6.10); White Blood Cell (WBC) Count 7.2 thou/uL (4.8-10.8)
[2018-10-09 07:39] VITALS: BP 173/70; TEMP 98.3
[2018-10-09] MEDS: NIFEdipine XL 30 MG TAB PO SCH (08:35)
[2018-10-09] MEDS: cloNIDine 0.2 MG TAB PO SCH (08:35)
[2018-10-09] MEDS: Folic Acid 1 MG TAB PO SCH (08:36)
[2018-10-09] MEDS: Calcium Acetate 667 MG CAP PO SCH ×2 (08:36→12:59)
[2018-10-09] MEDS: Cyanocobalamin (Vitamin B-12) 1,000 MCG TAB PO SCH (08:36)
[2018-10-09] MEDS: Carvedilol 25 MG TAB PO SCH (08:38)
[2018-10-09] MEDS: Gabapentin 400 MG CAP PO SCH (08:39)
--- NOTE | 2018-10-09 11:11 | PRG ---
DATE OF SERVICE: 10/09/2018 SUBJECTIVE: A 57-year-old gentleman, being seen for end-stage renal disease. The patient denied any nausea, vomiting, or chest pain. OBJECTIVE: CONSTITUTIONAL: The patient is awake and alert. VITAL SIGNS: . GENERAL APPEARANCE AND MENTAL STATUS: Fair. HEAD/NECK: Normocephalic. Atraumatic. EYES: EOMI. No deformity. EARS: Clear. No ulcers. NOSE: Intact. No lesions. MOUTH: Clear. No discharge. THROAT: Clear. No exudate. LUNGS: Clear. No crackles. CARDIAC: S1, S2. No rub. ABDOMEN: Benign. Bowel sounds positive. GENITALIA/RECTUM: Arechiga absent. BACK/EXTREMITIES: Edema 0+. NEUROLOGICAL: Alert and motor intact. SKIN: LYMPHATICS: LABORATORY DATA: Labs reviewed. ASSESSMENT AND PLAN: 1. chronic kidney disease. Continue hemodialysis. 2. Hypertension, stable. 3. Anemia, stable. 4. Medication based on GFR appropriate. Job ID: [id number]
[2018-10-09 13:13] LABS: A/G Ratio 1.5 (0.7-1.7); Albumin 3.9 g/dL (2.9-4.4); Alpha 1 0.3 g/dL (0.0-0.4); Alpha 2 0.8 g/dL (0.4-1.0); Beta 1.1 g/dL (0.7-1.3); Gamma 0.6 g/dL (0.4-1.8); Globulin, Total 2.6 g/dL (2.2-3.9); M-Spike Not Observed g/dL (Not Observed)
--- NOTE | 2018-10-09 17:09 | DIS ---
DATE OF ADMISSION: 10/05/2018 DATE OF DISCHARGE: 10/09/2018 CONSULTANTS: 1. Dr. Byrne. 2. Dr. Ramirez of Nephrology. 3. Cinthya Guaman, Nurse Practitioner of Oncology. MEDICATIONS: Reconciled at discharge. Change medications: 1. Pantoprazole increased to 40 mg twice a day. New medications are: 1. folic acid 1 mg p.o. daily. Medications to continue; 1. Lipitor 20 mg at bedtime. 2. PhosLo t.i.d. with meals. 3. Coreg 25 mg b.i.d. with meals. 4. Colace 100 mg b.i.d. 5. Epogen with dialysis. 6. Gabapentin 400 mg t.i.d. 7. Combivent 2 puffs four times daily as needed for shortness of breath. 8. Procardia XL 30 mg b.i.d. 9. Nitroglycerin 0.4 mg sublingual every 5 minutes as needed for chest pain to a maximum of 3. 10. Sertraline 25 mg daily. 11. Renvela 3200 mg per the instruction of Dr. Byrne. 12. Clonidine 0.2 mg t.i.d. FINAL DIAGNOSIS: 1. Symptomatic anemia in a patient with chronic kidney disease on hemodialysis, and concern for chronic GI blood loss. 2. Generalized weakness and fatigue secondary to above. SECONDARY DIAGNOSES: 1. End-stage renal disease, on hemodialysis. 2. Coronary artery disease with history of stent. 3. Peripheral vascular disease with history of stent. 4. Chronic diastolic heart failure. 5. Hypertension. 6. History of stroke. 7. Secondary hyperparathyroidism. 8. Tobacco abuse. HISTORY OF PRESENT ILLNESS: Mr. Chris is a 57-year-old male, who has a long history of anemia, recently was hospitalized at [facility] and received transfusion as well as EGD that showed nonspecific gastritis. He was discharged to home, he presented to the emergency room with complaint of substernal chest pain that radiated to his shoulder, nausea and vomiting. His hemoglobin at that time was 6.1 and he was transferred here. HOSPITAL COURSE: The patient underwent transfusion here and received a total of 4 units of packed red blood cells. His Epogen has been adjusted by Dr. Byrne. He was evaluated by [facility], who checked folic acid level and found to be low and the patient will be on replacement for this. They recommend that we transfuse until a stable hemoglobin, they do have a serum protein electrophoresis that is pending at time of discharge, and follow up with his physicians at [facility]. By report, the patient has undergone an extensive GI workup without any bleeding found, only the nonerosive gastritis. The patient was kept on his usual medications, has undergone dialysis here with his last dialysis was yesterday. He will follow up with his usual hemodialysis tomorrow. The patient overall is doing well, ambulating, symptomatically improved and he meets criteria for discharge to home. PHYSICAL EXAMINATION: VITAL SIGNS: Blood pressure 173/70, temp 98.3, respirations 18, sats 93% on room air, pulse 68. GENERAL: Awake, alert, responsive, in no apparent distress, able to speak in full sentences. LUNGS: Clear to auscultation. HEART: Normal S1 and S2. Regular rate and rhythm. No significant murmur. ABDOMEN: Soft with present bowel sounds. MOONEY FINDINGS AND TEST RESULTS: CBC today is 7.2, 10.5, 31.8, 265. Hemoglobin here on admission 6.5, and it has ranged from 6.5 to 8.3 yesterday, and then 10.5 today. INR 1.1. Renal panel on 10/05, 142, 4.4, 97, 25, 77, 9.12, 85. TIBC 275. Iron 53, ferritin 202. Vitamin B12 of 515, folate 4.6. T bilirubin 0.3, AST 9, ALT 7, alkaline phosphatase 97, total protein 6.8, albumin 3.8. Immunology shows his IgA level is high at 574 with a normal range of 63 to 484. His IgM total is low and his IgG total is 745. Hepatitis B studies were negative. Chest x-ray on admission, 10/05, shows heart size prominent, postoperative changes, stent in the left axilla, mild patchy infiltrate in the right lower lung lobe. DIET: Renal prudent with a fluid restriction as directed by Dr. Byrne. ACTIVITY: As tolerated. DISCHARGE DISPOSITION: Home. CODE STATUS: Full. FOLLOWUP: 1. Follow up is with the primary care provider within a week, preferably this week, to review this hospitalization and address any other health needs. 2. Follow up with hemodialysis Monday, Monday, and Monday as scheduled. 3. Follow up with Hematology for SPEP, and to monitor the anemia in addition to the primary care provider. Reviewed the plan of care, this hospitalization and seek care precautions with the patient. No questions or further needs at end of evaluation. The patient is at high risk for readmission given age comorbidities and chronic diseases. TIME SPENT: Total time coordinating discharge is 30 minutes. Job ID: [id number] MTDD
== END 2018-10-09 14:54 | disposition home or self-care (01) | DRG 291 ==
LOC: ERS 04:58 → OBSVTOIN 06:00 → 2SW 06:00 → T4-B 10-07 14:16
PROVIDERS: ADMIT Internal Medicine; ATTEND Internal Medicine
PROC: 30233N1 Transfusion of Nonautologous Red Blood Cells into Peripheral Vein, Percutaneous Approach (ICD-10-PCS; principal; 2018-10-05)
PROC: 5A1D70Z Performance of Urinary Filtration, Intermittent, Less than 6 Hours Per Day (ICD-10-PCS; 2018-10-05)
DX: I13.2 Hypertensive heart and chronic kidney disease with heart failure and with stage 5 chronic kidney disease, or end stage renal disease (principal); N18.6 End stage renal disease; I50.32 Chronic diastolic (congestive) heart failure; N25.81 Secondary hyperparathyroidism of renal origin; D63.1 Anemia in chronic kidney disease; I25.10 Atherosclerotic heart disease of native coronary artery without angina pectoris; D50.0 Iron deficiency anemia secondary to blood loss (chronic); F17.210 Nicotine dependence, cigarettes, uncomplicated; K29.70 Gastritis, unspecified, without bleeding; E11.22 Type 2 diabetes mellitus with diabetic chronic kidney disease; K21.9 Gastro-esophageal reflux disease without esophagitis; I25.2 Old myocardial infarction; Z88.8 Allergy status to other drugs, medicaments and biological substances; Z79.899 Other long term (current) drug therapy; Z99.2 Dependence on renal dialysis
CPT/HCPCS: 36415; 36430; 71045; 80053; 82607; 82728; 82746; 83540; 83550; 84165; 84484; 85025; 85046; 85610; 85730; 86706; 86850; 86900; 86901; 87340; 90935; 93005; 94640; 96374; 96375; C9113; G0257; J0360; J1644; J2270; J7620; P9016; Q5105

== ENCOUNTER 2019-01-25 10:43 | Inpatient (IN) | payer MEDICARE, MEDICAID ==
[2019-01-25] MEDS ORDERED: Nitroglycerin 50 MG/250 ML BOT 250 ML ONE (11:11)
[2019-01-25] MEDS ORDERED: niCARdipine 20MG In NaCl 20 MG/200 ML BAG ONE (12:40)
[2019-01-25] MEDS ORDERED: niCARdipine 20MG In NaCl 20 MG/200 ML BAG IVPB SCH (13:00)
[2019-01-25] MEDS ORDERED: HumaLOG 300 UNITS/3 ML VIAL SC PRN (13:07)
[2019-01-25] MEDS ORDERED: Ondansetron PF 4 MG/2 ML Vial IVP PRN (13:07)
[2019-01-25] MEDS ORDERED: Ondansetron ODT 4 MG TAB PO PRN (13:07)
[2019-01-25] MEDS ORDERED: Dextrose 50% Abboject 50 ML SYRINGE SLOW IVP PRN (13:07)
[2019-01-25] MEDS ORDERED: Acetaminophen 325 MG TAB PO PRN (13:07)
[2019-01-25] MEDS ORDERED: Dextrose 5% in Water 1,000 ML IV PRN (13:07)
[2019-01-25 13:11] LABS: Troponin I 0.055 ng/mL (< 0.028)
[2019-01-25] MEDS ORDERED: niCARdipine 25 MG in Sodium Chloride 0.9% 250 ML 240 ML IVPB SCH (14:45)
[2019-01-25] MEDS: Heparin 5,000 UNITS/ML VIAL SC SCH ×2 (14:50→20:57)
[2019-01-25 15:33] LABS: Troponin I 0.073 ng/mL (< 0.028)
--- NOTE | 2019-01-25 15:52 | RAD ---
PORTABLE CHEST: 01/25/19 HISTORY: CHF. COMPARISON: 10/05/18. New hazy infiltrate in the right mid and lower lung. Vascular congestion and interstitial prominence may represent edema. Mild cardiomegaly is stable. IMPRESSION: Cardiomegaly with mild vascular congestion. Hazy alveolar infiltrate in the right mid and lower lung may represent edema although inflammatory process not excluded. Recommend close follow-up. POS: [facility]
[2019-01-25] MEDS: niCARdipine 25 MG in Sodium Chloride 0.9% 250 ML 240 ML IVPB SCH ×2 (16:58→23:42)
--- NOTE | 2019-01-25 17:31 | HP ---
CHIEF COMPLAINT: Shortness of breath and pain in the shoulders and neck. HISTORY OF PRESENT ILLNESS: The patient is a 58-year-old male, who was seen in [facility] Emergency Room a couple of times for some neck pain and shoulder pain along with some shortness of breath. Apparently, his neck pain and shoulder pain is going on for approximately 3 to 4 weeks, shortness of breath just started recently. He went to the [facility] and was found to have hemoglobin of 5.9. He was transferred to [facility] Emergency Room in [place] for further workup and treatments and hospitalization. He was found to be hypertensive with systolic blood pressure more than 200s and diastolic with above 100. He denies any chest pain. He denies any fever or chills. His primary care physician is and surrogate decision maker is his brother, Fernando. Also, he noticed some dry cough and no sputum production going on for few days and he has been treated with antibiotics for his chest congestion, which is going on for few days. PAST MEDICAL HISTORY: Positive for, 1. Recurrent symptomatic anemia, required multiple blood transfusions. 2. Coronary artery disease with last LVEF estimated at 55% to 60%. 3. Chronic diastolic heart failure. 4. History of cerebrovascular accident. 5. Diabetes mellitus type 2. 6. End-stage renal disease, on hemodialysis 3 times a week. 7. Gastroesophageal reflux disease. 8. Hypertension with hypertensive urgency and history of non-ST elevation myocardial infarction. 9. Peripheral vascular disease. PAST SURGICAL HISTORY: 1. Dialysis access. 2. Coronary stent placement. 3. Angiogram for peripheral vascular disease. CURRENT MEDICATIONS: Please refer to the medications list. ALLERGIES: NOT KNOWN DRUG ALLERGIES EXCEPT FOR HYDRALAZINE. SOCIAL HISTORY: The patient continues to smoke maybe 2 to 3 cigarettes per day. He denies any alcohol intake or any illicit drug use. FAMILY HISTORY: Positive for kidney disease in the mother and malignancy in the father. REVIEW OF SYSTEMS: All other systems were reviewed and they were negative except for those symptoms mentioned in the HPI. PHYSICAL EXAMINATION: VITAL SIGNS: Blood pressure is 206/95, pulse is 73, respiratory rate is 26, pulse oximetry is 96 on 2 L by nasal cannula. GENERAL: He looks sick and tired. HEENT: His pupils respond to light properly. Sclerae are nonicteric. Conjunctivae palish. Oral mucosa is moist. NECK: Supple. LUNGS: Bilateral rales and wheezes and crackles present. ABDOMEN: Soft, nontender, nondistended. EXTREMITIES: 1+ peripheral edema of both lower extremities. He has nonfunctional fistula on the right upper extremity and functional fistula on the left upper extremity. NEUROLOGIC: He follows my commands. He moves his all 4 extremities. There is no any motor deficits. LABORATORY DATA: Labs showed sodium of 149, potassium 5.3, chloride 104, CO2 of 25, calcium 8.3. Normal LFTs. Creatinine 8.95, glucose 82, BUN 53. Troponin I is 0.07. White count of 8.5, hemoglobin of 5.9, hematocrit 19.2, platelet count 260,000. Chest x-ray showed worsening CHF and fluid overload with pulmonary edema. There was no pleural fluid or pneumothorax. Cardiac silhouette is enlarged and there is some increased vascular congestion with interstitial edema and alveolar opacities likely representing edema. Electrocardiogram showed normal sinus rhythm with peaked T-waves in precordial leads, which could represent ischemic process, most likely secondary to elevated blood pressure. IMPRESSION: 1. Pulmonary edema, fluid overload, rule out acute coronary syndrome. His first troponin is within normal limits. We will get emergent dialysis done. 2. Hypertensive emergency. We will start him on Cardene drip instead of nitroglycerin which is up to and it is not lowering the blood pressure. 3. Congestive heart failure, most likely diastolic with normal LVEF on the last echo. 4. History of cerebrovascular accident. 5. End-stage renal disease, on hemodialysis 3 times a week. 6. Gastroesophageal reflux disease. 7. Hypertension with hypertensive urgency. 8. History of non-ST elevation myocardial infarction. 9. Peripheral vascular disease. 10. Coronary artery disease. PLAN: Full admission to [facility]. Condition guarded. Full code. IV Hep-Lock. Emergent hemodialysis. The case was discussed with Dr. Ramirez who is ordering dialysis as we speak and the patient will be dialyzed very soon. Also we are going to try him on DuoNeb q.4 hours. We will continue O2 by nasal cannula. He is saturating between 92% and 97%. I do not think we need to cover him with antibiotic at this point. I do not see any infection and this is mostly fluid overload and cardiac strain secondary to hypertensive urgency and we will do PUD and DVT prophylaxis. Job ID: [id number]
[2019-01-25] MEDS: Carvedilol 25 MG TAB PO SCH (18:01)
[2019-01-25] MEDS: cloNIDine 0.2 MG TAB PO SCH (20:58)
[2019-01-25] MEDS: NIFEdipine XL 30 MG TAB PO SCH (20:58)
[2019-01-25] MEDS ORDERED: Famotidine 20 MG TAB PO SCH (21:00)
--- NOTE | 2019-01-25 21:24 | CON ---
DATE OF CONSULTATION: HISTORY OF PRESENT ILLNESS: He is a 58-year-old gentleman, who was transferred hypertensive emergency, anemia, end-stage renal disease. He is in the ER and now in the ICU. I do not see a chest x-ray. It appears that he might have been transferred from elsewhere. [facility] in [place]. He is having some difficulty breathing. He is moaning and groaning. Pulse 105, blood pressure 160/80, saturations 90%, respirations 27. He denies any discomfort otherwise except for shortness of breath. PAST MEDICAL HISTORY: Includes a diagnosis of pulmonary edema, hyperkalemia, renal failure, hypoxemia, previous subarachnoid hemorrhage, chronic pain. An x-ray was taken on 01/25/2019, which showed worsening fluid overload and pulmonary edema. Nephrology was consulted. They are yet to see the patient. PAST SURGICAL HISTORY: Access for peritoneal catheter, angioplasty and stent, previous PICC line. SOCIAL HISTORY: Apparently drinks, still smokes. MEDICATIONS: Long list including, 1. Catapres 0.2 three times a day. 2. Procardia 30 b.i.d. 3. Coreg 25 b.i.d. 4. Zoloft 25. 5. Protonix. 6. Neb treatments. 7. Gabapentin. ALLERGIES: NONE. PHYSICAL EXAMINATION: VITAL SIGNS: Pulse 102, blood pressure 160/64, saturations 93% respirations 24. CHEST: Bilateral rhonchi, crackles. CARDIAC: Normal S1 and S2. No gallops. ABDOMEN: No masses. IMPRESSION: Acute on chronic respiratory failure secondary to fluid overload, renal failure, chronic obstructive pulmonary disease, depression. We will restart all his home medicine. Continue nicardipine and consulted Nephrology stat for dialysis. PT, supportive care. We will follow this. This is a 45-minute critical time. Job ID: [id number]
[2019-01-25 22:04] LABS: HBSAg Index 0.11 S/CO (0-0.99); Hep B Surf Ag Non-Reactive S/CO (NonReactive)
[2019-01-25] MEDS: Acetaminophen/Codeine 30-300mg Tablet PO PRN (23:40)
[2019-01-26] MEDS: diphenhydrAMINE 25 MG CAP PO PRN ×2 (02:34→08:33)
[2019-01-26] MEDS: niCARdipine 25 MG in Sodium Chloride 0.9% 250 ML 240 ML IVPB SCH ×3 (02:34→08:32)
--- NOTE | 2019-01-26 02:41 | CON ---
DATE OF CONSULTATION: 01/25/2019 CONSULTING PHYSICIAN: Mario Marshall MD REASON FOR CONSULT: End-stage renal disease evaluation and care. REASON FOR ADMISSION: Shortness of breath and fluid overload. HISTORY OF PRESENT ILLNESS: A 58-year-old male with history of anemia, coronary artery disease, CHF, type 2 diabetes, ESRD, came to the hospital with shortness of breath. The patient is noncompliant with dialysis and missed dialysis on Monday and is due for dialysis today, but started having shortness of breath, taken to local ER and was transferred over here. The patient is having difficulty breathing when I saw him. He was in ICU. He also hypertensive. No chest pain or palpitation reported. He was also anemic. PAST MEDICAL HISTORY: Positive for anemia, CAD, CHF, CVA, type 2 diabetes, end-stage renal disease, hypertension, peripheral vascular disease. PAST SURGICAL HISTORY: 1. Dialysis access. 2. Placement of coronary stents. HOME MEDICATIONS: 1. Protonix. 2. PhosLo. 3. Lipitor. 4. Folvite. 5. Colace. 6. Zoloft. 7. Combivent. 8. Renvela. 9. Procardia. 10. Coreg. 11. Catapres. ALLERGIES: NO KNOWN DRUG ALLERGIES. SOCIAL HISTORY: No smoking, alcohol, or illicit drugs. FAMILY HISTORY: No history of kidney disease. REVIEW OF SYSTEMS: CONSTITUTIONAL: Negative for weight loss or gain, ability to conduct usual activities. SKIN: Negative for rash, itching. EYES: Negative for double vision, pain. ENT/MOUTH: Negative for nose bleeding, neck stiffness, pain, tenderness. CARDIOVASCULAR: Negative for palpitations, dyspnea on exertion, orthopnea. RESPIRATORY: Negative for wheezing, cough, hemoptysis, fever or night sweats. GASTROINTESTINAL: Negative for poor appetite, abdominal pain, heartburn, nausea, vomiting, constipation, or diarrhea. GENITOURINARY: Negative for urgency, frequency, dysuria, nocturia. MUSCULOSKELETAL: Negative for pain, swelling. NEUROLOGIC/PSYCHIATRIC: Negative for anxiety, depression. ALLERGY/IMMUNOLOGIC: Negative for skin rash, bleeding tendency. PHYSICAL EXAMINATION: GENERAL: This is a well-built male, in no apparent distress. VITAL SIGNS: Temperature 98.1, pulse 79, respirations 16, blood pressure 177/81. HEENT: Atraumatic and normocephalic. Oral mucosa moist. NECK: Supple. CV: S1 and S2 heard. Rate and rhythm are regular. RESPIRATORY: Clear. GASTROINTESTINAL: Abdomen is soft. MUSCULOSKELETAL: 1+ edema. DERMATOLOGIC: No skin rash. NEUROLOGIC: Alert and awake. PSYCHIATRIC: Mood and affect normal. LABORATORY DATA: Potassium is 5.3, BUN is 53, and creatinine is 8.9. ASSESSMENT: 1. End-stage renal disease. Plan is to start dialysis. 2. Fluid overload. Remove fluid. 3. Hypertension, remove fluid. Titrate medications. Agree with Cardene drip. 4. Edema, controlled. 5. Anemia. We will transfuse with dialysis. PLAN: Continue dialysis as tolerated. Thank you for the consult. Job ID: [id number]
[2019-01-26] MEDS: Acetaminophen/Codeine 30-300mg Tablet PO PRN ×2 (06:25→20:10)
[2019-01-26 06:45] LABS: Anion Gap 19 mmol/L (10-20); BUN (Urea Nitrogen) 24 mg/dL (8.4-25.7); Calc. Creatinine Clearance 15 mL/min (70-130); Calcium 9.6 mg/dL (7.8-10.44); Carbon Dioxide 24 mmol/L (22-29); Chloride 98 mmol/L (98-107); Estimated GFR-MDRD 14; Glucose 71 mg/dL (70-105); Potassium 4.3 mmol/L (3.5-5.1); Sodium 137 mmol/L (136-145)
[2019-01-26] MEDS: Heparin 5,000 UNITS/ML VIAL SC SCH ×3 (08:33→20:09)
[2019-01-26] MEDS: Carvedilol 25 MG TAB PO SCH ×2 (08:34→15:52)
[2019-01-26] MEDS: cloNIDine 0.2 MG TAB PO SCH ×3 (08:34→20:09)
[2019-01-26] MEDS: NIFEdipine XL 30 MG TAB PO SCH ×2 (08:34→20:10)
[2019-01-26 08:52] LABS: Mean Corpuscular HGB CONC 34.2 g/dL (32.0-36.0); Mean Corpuscular Hemoglobin 33.2 pg (27.0-31.0); Mean Corpuscular Volume 97.2 fL (78.0-98.0); Mean Platelet Volume 8.6 fL (7.4-10.4); Platelet Count 199 thou/uL (130-400); RBC Distribution Width 18.2 % (11.5-14.5); Red Blood Cell (RBC) Count 2.42 mill/uL (4.70-6.10)
[2019-01-26] MEDS ORDERED: Cefepime 1 GM in Sodium Chloride 0.9% 100 ML IVPB SCH (09:00)
[2019-01-26 09:07] LABS: Hypochromia SLIGHT = 6-15 cells (100X) (0-5/hpf); Lymphocytes 4 % (21-51); MDiff Complete? YES; Monocytes 6 % (0-10); Neutrophil 89 % (42-75); Ovalocytes SLIGHT = 2-5 cells (100X) (0-1/hpf); Polychromasia SLIGHT = 2-3 cells (100X) (0-2/hpf); Target Cells SLIGHT = 2-5 cells (100X) (0-1/hpf); Vacuoles SLIGHT; White Blood Cell (WBC) Count 8.7 thou/uL (4.8-10.8)
--- NOTE | 2019-01-26 09:47 | RAD ---
PORTABLE CHEST: HISTORY: CCU followup. Dyspnea. COMPARISON: 01/25/2019. FINDINGS: Cardiomegaly. Mild vascular engorgement. The hazy infiltrate in the right mid and lower lung noted on the prior exam is less pronounced today. Hazy interstitial prominence bilaterally is also less pr ominent. IMPRESSION: Improvement in the appearance of the lung infiltrates. POS: [facility]
--- NOTE | 2019-01-26 10:54 | PRG ---
DATE OF SERVICE: 01/26/2019 SUBJECTIVE: Bran Chris this morning, is awake, alert, and responsive. He underwent dialysis yesterday with improvement in his blood pressure and chest x-ray. OBJECTIVE: VITAL SIGNS: Pulse 79, blood pressure 147/73, saturations 90% on room air, respiratory rate 27. CHEST: No wheezing or crackles. CARDIAC: Normal S1 and S2. No gallops. ABDOMEN: Soft. DIAGNOSTIC DATA: X-ray shows cephalization, cardiomegaly. LABORATORY DATA: Creatinine 5.2. ASSESSMENT: Respiratory failure secondary to renal failure, pulmonary edema, anemia. He is on his home medication. I am going to discontinue antibiotics. No evidence for any infection at this stage. He can be transferred out of the ICU. Job ID: [id number]
--- NOTE | 2019-01-26 13:11 | PDOC.HOSPP ---
- Subjective Encounter Date: 01/26/19 Encounter Time: 13:09 Subjective: Mr. Chris was seen today in follow-up of respiratory failure. His only complaint is a non-productive cough. - Objective Vital Signs & Weight: Vital Signs (12 hours) Temp Pulse Resp BP Pulse Ox 01/26/19 11:00 99 F 01/26/19 10:36 72 15 100 01/26/19 08:34 90 179/80 H 01/26/19 07:43 90 19 100 01/26/19 07:30 98 01/26/19 07:00 99.1 F 01/26/19 04:00 99.2 F Weight Weight 154 lb 8.705 oz Most Recent Monitor Data Heart Rate from ECG 78 NIBP 142/74 NIBP BP-Mean 96 Respiration from ECG 22 SpO2 100 I&O: 01/25/19 01/26/19 01/27/19 06:59 06:59 06:59 Intake Total 1714 300 Output Total 0 Balance 1714 300 Result Diagrams: 01/26/19 08:12 01/26/19 06:21 Additional Labs: Accuchecks 01/26/19 01/26/19 01/25/19 12:06 06:26 20:04 POC Glucose 103 78 87 01/25/19 16:43 POC Glucose 106 Hospitalist ROS - Medication Medications: Active Medications Generic Name Dose Route Start Last Admin Trade Name Freq PRN Reason Stop Dose Admin Acetaminophen/Codeine Phosphate 1 tab 01/25/19 20:32 01/26/19 06:25 Tylenol #3 PO 1 tab Q6H PRN Administration Moderate Pain (4-6) Albuterol/Ipratropium 3 ml 01/25/19 15:00 01/26/19 10:36 Duoneb NEB 3 ml [id number] MEGHNA Administration Carvedilol 25 mg 01/25/19 17:00 01/26/19 08:34 Coreg PO 25 mg BID-WM MEGHNA Administration Clonidine 0.2 mg 01/25/19 21:00 01/26/19 08:34 Catapres PO 0.2 mg TID MEGHNA Administration Heparin Sodium (Porcine) 5,000 units 01/25/19 15:00 01/26/19 08:33 Heparin SC 5,000 units TID MEGHNA Administration Nicardipine HCl 25 mg/ Sodium 250 mls @ 0 mls/hr 01/25/19 14:45 01/26/19 08: 32 Chloride IVPB 250 mls INF MEGHNA Administration Protocol Titrate Nifedipine 30 mg 01/25/19 21:00 01/26/19 08:34 Procardia Xl PO 30 mg BID MEGHNA Administration - Exam Eye: PERRL, anicteric sclera Heart: RRR, no murmur, no gallops, no rubs, normal peripheral pulses Gastrointestinal: soft, non-tender, non-distended, normal bowel sounds, no palpable masses, no hepatomegaly, no splenomegaly, no bruit Extremities: no cyanosis, no edema Hosp A/P (1) Hypertensive urgency Code(s): I16.0 - HYPERTENSIVE URGENCY Status: Acute (2) Acute blood loss anemia Code(s): D62 - ACUTE POSTHEMORRHAGIC ANEMIA Status: Acute (3) ESRD (end stage renal disease) on dialysis Code(s): N18.6 - END STAGE RENAL DISEASE; Z99.2 - DEPENDENCE ON RENAL DIALYSIS Status: Chronic (4) Hypertension Code(s): I10 - ESSENTIAL (PRIMARY) HYPERTENSION Status: Chronic Qualifiers: Hypertension type: essential hypertension Qualified Code(s): I10 - Essential (primary) hypertension (5) Noncompliance with renal dialysis Code(s): Z91.15 - PATIENT'S NONCOMPLIANCE WITH RENAL DIALYSIS Status: Chronic - Plan * Hypertensive urgency- he is now off the cardene drip, and his blood pressure is controlled * He can be moved out the the ICU * ESRD- continue maintenance dialysis * Cough- likely related to COPD- discussed smoking cessation * Anemia- in renal disease- his H&H is stable after transfusion
[2019-01-26] MEDS ORDERED: hydrALAZINE 20 MG/ML VIAL SLOW IVP PRN (14:36)
[2019-01-26] MEDS ORDERED: cloNIDine 0.1 MG TAB PO PRN (14:36)
[2019-01-26] MEDS ORDERED: FLU VACC QS2019-20(6MOS UP)/PF 60 MCG/0.5 ML SYRINGE IM ONE (15:30)
[2019-01-26] MEDS: guaiFENesin ER 600 MG TAB PO SCH (20:09)
[2019-01-26] MEDS ORDERED: Famotidine 20 MG TAB PO SCH (21:00)
[2019-01-26 22:14] VITALS: BMI 22.6
[2019-01-27] MEDS ORDERED: diphenhydrAMINE 25 MG CAP PO PRN (03:09)
[2019-01-27 06:12] LABS: Anion Gap 17 mmol/L (10-20); BUN (Urea Nitrogen) 25 mg/dL (8.4-25.7); Calc. Creatinine Clearance 16 mL/min (70-130); Calcium 9.9 mg/dL (7.8-10.44); Carbon Dioxide 29 mmol/L (22-29); Chloride 100 mmol/L (98-107); Estimated GFR-MDRD 16; Glucose 108 mg/dL (70-105); Sodium 142 mmol/L (136-145)
[2019-01-27 06:28] LABS: Band 5 % (5-11); Hemoglobin 8.9 g/dL (14.0-18.0); Hypochromia SLIGHT = 6-15 cells (100X) (0-5/hpf); Lymphocytes 13 % (21-51); MDiff Complete? YES; Macrocytosis SLIGHT = 6-15 cells (100X) (0-5/hpf); Mean Corpuscular HGB CONC 33.8 g/dL (32.0-36.0); Mean Corpuscular Hemoglobin 33.8 pg (27.0-31.0); Mean Corpuscular Volume 99.8 fL (78.0-98.0); Mean Platelet Volume 8.6 fL (7.4-10.4); Monocytes 9 % (0-10); Neutrophil 72 % (42-75); Platelet Count 186 thou/uL (130-400); Platelet Morphology Comment Appears Adequate; RBC Distribution Width 17.6 % (11.5-14.5); Red Blood Cell (RBC) Count 2.64 mill/uL (4.70-6.10); White Blood Cell (WBC) Count 5.1 thou/uL (4.8-10.8)
[2019-01-27] MEDS: NIFEdipine XL 30 MG TAB PO SCH (08:15)
[2019-01-27] MEDS: Carvedilol 25 MG TAB PO SCH (08:16)
[2019-01-27] MEDS: guaiFENesin ER 600 MG TAB PO SCH (08:16)
[2019-01-27] MEDS: Heparin 5,000 UNITS/ML VIAL SC SCH ×2 (08:16→15:35)
[2019-01-27] MEDS: cloNIDine 0.2 MG TAB PO SCH ×2 (08:16→15:35)
[2019-01-27] MEDS: Acetaminophen/Codeine 30-300mg Tablet PO PRN (08:18)
--- NOTE | 2019-01-27 09:02 | PRG ---
DATE OF SERVICE: 01/27/2019 SUBJECTIVE: Patient was seen and examined at bedside and overnight events noted. Patient denies any shortness of breath or chest pain or palpitation. No history of nausea or vomiting or diarrhea or fever or chills or cramps. OBJECTIVE: GENERAL: This is a well-built male, in no apparent distress. VITAL SIGNS: Temperature 98.1. Heart rate 59. Respiratory rate 18. Blood pressure 143/61. HEENT: Atraumatic, normocephalic. Oral mucosa is moist NECK: Supple. CARDIOVASCULAR: S1, S2 heard. Rate and rhythm regular. RESPIRATORY: Clear to auscultation. GASTROINTESTINAL: Abdomen is soft. MUSCULOSKELETAL: No tenderness. No edema. DERMATOLOGIC: No skin rash. NEUROLOGIC: Alert and awake and oriented X3. No focal neurologic deficits. Moving all the extremities. PSYCHIATRIC: Mood and affect normal. LABORATORY DATA: Potassium is 4.0, BUN is 25, creatinine is 4.0. ASSESSMENT AND PLAN: 1. End-stage renal disease. Continue dialysis, Monday, Monday, and Monday. 2. Fluid overload, better. 3. Hypertension. 4. Edema. 5. History of anemia. Continue dialysis Monday, Monday, and Monday as tolerated. Job ID: [id number]
--- NOTE | 2019-01-27 11:53 | PRG ---
DATE OF SERVICE: 01/27/2019 SUBJECTIVE: Bran Chris is a 58-year-old gentleman, status post emergency dialysis, hypertension, improved. No shortness of breath. OBJECTIVE: VITAL SIGNS: Temperature 98, pulse 62, respirations 16, saturations are 99% on 2 L, and blood pressure 155/57. CHEST: No wheezing or crackles. CARDIAC: Normal S1 and S2. No gallops. LABORATORY DATA: Unremarkable except for creatinine of 4.61. ASSESSMENT AND PLAN: 1. Respiratory failure, congestive heart failure, fluid overload, improved. 2. Hypertension, stable. Pulmonary marquis, he can be discharged home any time. Pulmonary will follow at a distance. Job ID: [id number]
--- NOTE | 2019-01-27 14:06 | PDOC.HOSPP ---
- Subjective Encounter Date: 01/27/19 Encounter Time: 14:04 Subjective: Mr. Chris was seen today in follow-up of hypertensive urgency and respiratory failure. He says he is breathing better today. He also notes improved cough. - Objective Vital Signs & Weight: Vital Signs (12 hours) Temp Pulse Resp BP BP Pulse Ox 01/27/19 13:44 64 16 96 01/27/19 11:01 98.1 F 62 16 155/57 H 99 01/27/19 10:32 65 16 97 01/27/19 08:16 149/68 H 01/27/19 08:15 59 L 01/27/19 07:16 98.1 F 59 L 18 143/61 H 93 L 01/27/19 06:41 96 01/27/19 06:39 62 16 96 01/27/19 04:51 98.1 F 71 18 164/76 H 92 L Weight Weight 144 lb 6.444 oz Most Recent Monitor Data Heart Rate from ECG 80 NIBP 160/86 NIBP BP-Mean 110 Respiration from ECG 19 SpO2 100 I&O: 01/26/19 01/27/19 01/28/19 06:59 06:59 06:59 Intake Total 1714 630 Output Total 0 Balance 1714 630 Result Diagrams: 01/27/19 05:36 01/27/19 05:36 Additional Labs: Accuchecks 01/27/19 01/27/19 01/26/19 11:03 04:16 20:15 POC Glucose 112 H 119 H 155 H 01/26/19 16:32 POC Glucose 95 Hospitalist ROS - Medication Medications: Active Medications Generic Name Dose Route Start Last Admin Trade Name Freq PRN Reason Stop Dose Admin Acetaminophen/Codeine Phosphate 1 tab 01/25/19 20:32 01/27/19 08:18 Tylenol #3 PO 1 tab Q6H PRN Administration Moderate Pain (4-6) Albuterol/Ipratropium 3 ml 01/25/19 15:00 01/27/19 13:44 Duoneb NEB 3 ml [id number] MEGHNA Administration Carvedilol 25 mg 01/25/19 17:00 01/27/19 08:16 Coreg PO 25 mg BID-WM MEGHNA Administration Clonidine 0.2 mg 01/25/19 21:00 01/27/19 08:16 Catapres PO 0.2 mg TID MEGHNA Administration Diphenhydramine HCl 25 mg 01/27/19 03:09 01/27/19 04:12 Benadryl PO 25 mg Q8H PRN Administration Itching Famotidine 20 mg 01/26/19 21:00 01/26/19 20:09 Pepcid PO 20 mg QPM MEGHNA Administration Guaifenesin 600 mg 01/26/19 21:00 01/27/19 08:16 Mucinex PO 600 mg Q12HR MEGHNA Administration Heparin Sodium (Porcine) 5,000 units 01/25/19 15:00 01/27/19 08:16 Heparin SC 5,000 units TID MEGHNA Administration Nifedipine 30 mg 01/25/19 21:00 01/27/19 08:15 Procardia Xl PO 30 mg BID MEGHNA Administration - Exam Eye: PERRL Heart: RRR, no murmur, no gallops, no rubs, normal peripheral pulses Respiratory: rales, wheezes Gastrointestinal: soft, non-tender, non-distended, normal bowel sounds, no palpable masses, no hepatomegaly Extremities: no cyanosis, no clubbing, no edema Hosp A/P (1) Hypertensive urgency Code(s): I16.0 - HYPERTENSIVE URGENCY Status: Acute (2) Acute blood loss anemia Code(s): D62 - ACUTE POSTHEMORRHAGIC ANEMIA Status: Acute (3) ESRD (end stage renal disease) on dialysis Code(s): N18.6 - END STAGE RENAL DISEASE; Z99.2 - DEPENDENCE ON RENAL DIALYSIS Status: Chronic (4) Hypertension Code(s): I10 - ESSENTIAL (PRIMARY) HYPERTENSION Status: Chronic Qualifiers: Hypertension type: essential hypertension Qualified Code(s): I10 - Essential (primary) hypertension (5) Noncompliance with renal dialysis Code(s): Z91.15 - PATIENT'S NONCOMPLIANCE WITH RENAL DIALYSIS Status: Chronic - Plan * Hypertensive urgency- resolved * HTN- blood pressure is better * ESRD- continue maintenance dialysis * Cough- likely related to COPD- discussed smoking cessation-he now tells me he has quit- * Anemia- in renal disease- his H&H is stable after transfusion * Stable for discharge home
[2019-01-27 15:54] VITALS: BP 157/68; TEMP 97.5
--- NOTE | 2019-01-27 21:59 | DIS ---
DATE OF ADMISSION: 01/25/2019 DATE OF DISCHARGE: 01/27/2019 PRIMARY CARE PHYSICIAN: DISCHARGE DISPOSITION: Home. PRIMARY DISCHARGE DIAGNOSES: 1. Hypertensive urgency. 2. Severe anemia. 3. Acute respiratory failure secondary to #1 and #2. 4. Chronic diastolic heart failure. 5. History of cerebrovascular accident. 6. Diabetes mellitus, type 2. 7. End-stage renal disease, on hemodialysis. 8. Gastroesophageal reflux disease. DISCHARGE MEDICATIONS: 1. Renvela 3200 mg as needed. 2. Protonix 40 mg twice daily. 3. Nitrostat 0.4 sublingual p.r.n. 4. Nifedipine extended release 30 mg twice daily. 5. Folic acid 1 mg daily. 6. Docusate 100 mg twice a day. 7. Clonidine 0.2 mg t.i.d. 8. Carvedilol 25 mg twice a day. 9. Albuterol inhaler q.i.d. as needed. 10. Zoloft 25 mg daily. 11. Gabapentin 400 mg t.i.d. 12. Procrit 10,000 units as directed. 13. PhosLo 667 mg t.i.d. 14. Lipitor 20 mg at bedtime. CODE STATUS: Full code. ALLERGIES: NO KNOWN DRUG ALLERGIES. HOSPITAL COURSE: Mr. Chris is a pleasant 58-year-old gentleman, who presented to the emergency room complaining of difficulty breathing as well as pain in his neck and shoulders. He was evaluated in the ER and found to be volume overloaded. It is likely that he may have missed dialysis as he does have a history of noncompliance. He was also found to have an extremely elevated blood pressure with systolics above 200. He was admitted to the ICU and placed on a Cardene drip and underwent urgent dialysis. He was also started back on his usual antihypertensive medications. His kaiako kura tuarua was consulted, as well as Pulmonary and Critical Care. After undergoing dialysis, his blood pressure normalized and his symptoms improved with regard to dyspnea. He was also found to have a severe anemia in which he was transfused units. This was likely due to noncompliance with the Epogen or Procrit. Once the patient was stabilized, he was able to be discharged home and to follow up with his primary care physician in 1 to 2 weeks. Job ID: [id number]
--- NOTE | 2019-01-28 10:38 | PRG ---
DATE OF SERVICE: 01/26/2019 SUBJECTIVE: Patient was seen and examined at bedside and overnight events noted. Patient denies any shortness of breath or chest pain or palpitation. No history of nausea or vomiting or diarrhea or fever or chills or cramps. OBJECTIVE: GENERAL: This is a well-built male, in no apparent distress. VITAL SIGNS: Temperature . Heart rate 87. Respiratory rate 18. Blood pressure 142/64. HEENT: Atraumatic, normocephalic. Oral mucosa is moist NECK: Supple. CARDIOVASCULAR: S1, S2 heard. Rate and rhythm regular. RESPIRATORY: Clear to auscultation. GASTROINTESTINAL: Abdomen is soft. MUSCULOSKELETAL: No tenderness. No edema. DERMATOLOGIC: No skin rash. NEUROLOGIC: Alert and awake and oriented X3. No focal neurologic deficits. Moving all the extremities. PSYCHIATRIC: Mood and affect normal. LABORATORY DATA: Potassium 4.3, BUN is 24, and creatinine is 5.2. ASSESSMENT AND PLAN: 1. End-stage renal disease. Continue on dialysis as tolerated. 2. Fluid overload. Remove fluid. 3. Hypertension. 4. Edema. 5. Anemia. Plan to have an extra session of dialysis today. Dialysis was notified. Will continue on dialysis as tolerated. Job ID: [id number]
== END 2019-01-27 17:18 | disposition home or self-care (01) | DRG 640 ==
LOC: ERS 10:43 → CCU 14:28 → T4-A 01-26 18:44
PROVIDERS: ADMIT Internal Medicine; ATTEND Internal Medicine
PROC: 30233N1 Transfusion of Nonautologous Red Blood Cells into Peripheral Vein, Percutaneous Approach (ICD-10-PCS; principal; 2019-01-25)
PROC: 5A1D70Z Performance of Urinary Filtration, Intermittent, Less than 6 Hours Per Day (ICD-10-PCS; 2019-01-25)
DX: E87.70 Fluid overload, unspecified (principal); N18.6 End stage renal disease; J96.20 Acute and chronic respiratory failure, unspecified whether with hypoxia or hypercapnia; D62 Acute posthemorrhagic anemia; I50.32 Chronic diastolic (congestive) heart failure; J81.1 Chronic pulmonary edema; I13.0 Hypertensive heart and chronic kidney disease with heart failure and stage 1 through stage 4 chronic kidney disease, or unspecified chronic kidney disease; I16.0 Hypertensive urgency; I25.10 Atherosclerotic heart disease of native coronary artery without angina pectoris; K21.9 Gastro-esophageal reflux disease without esophagitis; F17.210 Nicotine dependence, cigarettes, uncomplicated; I73.9 Peripheral vascular disease, unspecified; J44.9 Chronic obstructive pulmonary disease, unspecified; F32.9 Major depressive disorder, single episode, unspecified; Z86.73 Personal history of transient ischemic attack (TIA), and cerebral infarction without residual deficits; Z99.2 Dependence on renal dialysis; Z95.5 Presence of coronary angioplasty implant and graft; Z98.890 Other specified postprocedural states; Z71.6 Tobacco abuse counseling; Z91.15 Patient's noncompliance with renal dialysis; E11.22 Type 2 diabetes mellitus with diabetic chronic kidney disease
CPT/HCPCS: 36415; 36416; 36430; 71045; 80048; 82947; 84484; 85007; 85027; 86850; 86900; 86901; 87340; 93005; 94640; 96365; 96367; J0692; J1644; J3490; J7050; J7620; P9016; Q0163